=== PATIENT | female | born 1965 | race Caucasian/White ===

== ENCOUNTER 2016-11-23 17:04 | Emergency (ER) | payer OTHER ==
[2016-11-23 18:00] VITALS: BP 136/83
[2016-11-23] MEDS ORDERED: Naproxen TAB* 250 MG PO ONE (19:23)
[2016-11-23] MEDS ORDERED: Acetaminop/Codeine 30 MG TAB* 1 TAB (300 MG/30 MG) PO ONE (19:24)
--- NOTE | 2016-11-23 19:55 | RAD ---
HISTORY: Fall on to right hip, pain COMPARISONS: None VIEWS: 4, Frontal view of the pelvis with frontal and frog-leg views of the right hip FINDINGS: BONE DENSITY: Normal. BONES: There is no displaced fracture. 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 SOFT TISSUES: Unremarkable. OTHER FINDINGS: Degenerative changes are noted of the spine IMPRESSION: NO RADIOGRAPHIC EVIDENCE FOR HIP FRACTURE. X-RAYS MAY BE NEGATIVE WITH NONDISPLACED HIP FRACTURE, IF THERE IS PERSISTENT CLINICAL CONCERN, RECOMMEND CONSIDERATION OF MRI. IN THE SETTING OF CONTRAINDICATION TO MRI OR LIMITATION IN EMERGENT ACCESS TO MRI, CT WOULD BE SUGGESTED.
--- NOTE | 2016-12-03 15:20 | UC ---
Ravi Carreno SooYoung, scribed for Ellie Zayas MD on 11/23/16 at 1921 . Lower Extremity/Ankle HPI - HPI Summary HPI Summary: A 51 y/o F presents to [facility] after slipping and falling onto R-side onset 0700 this AM. Pt was leaving [facility] and fell outside the back door. Associated: ecchymosis and pain along thigh and buttocks. Denies knee pain, abd pain. She notes having steroid injections at L2-L5 in March/April 2016. No PCP as she's currently moving from [place] to [place]. Pt is not on blood thinners. - History of Current Complaint Chief Complaint: UCLowerExtremity Stated Complaint: FELL-BACK AND HIP INJURY Time Seen by Provider: 11/23/16 19:06 Hx Obtained From: Patient Onset/Duration: Sudden Onset, Lasting Hours, Still Present Severity Currently: Moderate Pain Intensity: 6 Pain Scale Used: 0-10 Numeric - Allergies/Home Medications Allergies/Adverse Reactions: Allergies Allergy/AdvReac Type Severity Reaction Status Date / Time No Known Allergies Allergy Verified 11/23/16 18:00 Home Medications: Home Medications BuPROPion XL* [Bupropion XL*] 300 mg PO DAILY 11/23/16 [History Confirmed ] FLUoxetine CAP* [PROzac CAP*] 40 mg PO DAILY 11/23/16 [History Confirmed ] Levothyroxine TAB* [Synthroid TAB*] 150 mcg PO DAILY 11/23/16 [History Confirmed 11/23/16] Omeprazole CAP* [Prilosec CAP* 20 MG] 20 mg PO DAILY 11/23/16 [History Confirmed 11/23/16] PMH/Surg Hx/FS Hx/Imm Hx Previously Healthy: No Endocrine History Of: Reports: Thyroid Disease - HYPOTHYROID - Surgical History Surgical History: Yes Surgery Procedure, Year, and Place: SPLENECTOMY, CHOLECYSTECTOMY - Family History Known Family History: Positive: Cardiac Disease - father - afib, Diabetes - father - Social History Occupation: Employed Full-time Lives: Alone Alcohol Use: Occasionally Substance Use Type: None Smoking Status (MU): Never Smoked Tobacco Review of Systems Gastrointestinal: Negative Motor: Other - pos: pain at R thigh and buttocks Musculoskeletal: Other: - pos: ecchymoses on R thigh All Other Systems Reviewed And Are Negative: Yes Physical Exam Triage Information Reviewed: Yes Appearance: Well-Nourished, Pain Distress - with examination Vital Signs: Initial Vital Signs Temp 97.1 F 11/23/16 17:55 Pulse 83 11/23/16 17:55 Resp 18 11/23/16 17:55 BP 136/83 11/23/16 17:55 Pulse Ox 100 11/23/16 17:55 Vital Signs Reviewed: Yes Eye Exam: Normal ENT Exam: Normal Neck exam: Normal Neck: Positive: Supple, Nontender Respiratory Exam: Normal Respiratory: Positive: Chest non-tender, Lungs clear, Normal breath sounds, No respiratory distress, No accessory muscle use Cardiovascular Exam: Normal Cardiovascular: Positive: RRR, No Murmur, Pulses Normal, Brisk Capillary Refill Abdominal Exam: Normal Abdomen Description: Positive: Nontender Musculoskeletal Exam: Other - Tender R lat hip. Able to walk but painful. R lat thigh + irreg eccymosis approx 8cm diam. Distal R leg ok. Distal nvi. Neurological Exam: Normal Psychological Exam: Normal Skin Exam: Normal - Additional Comments Appearance: Well-Nourished Eye Exam: Normal ENT Exam: Normal Neck exam: Normal, no adenopathy appreciated Respiratory Exam: Normal, no dyspnea, no tachypnea, normal respiratory rate Cardiovascular Exam: Normal Cardiovascular: Heart rate regular, good general skin color, good capillary refill Abdominal Exam: Normal Abdomen Description: Nontender, No organomegaly, Soft Bowel Sounds: Present Musculoskeletal Exam: R LATERAL AND POSTERIOR HIP TENDERNESS Neurological Exam: Normal: nonfocal, grossly intact Psychological Exam: Normal: conversing easily and appropriately Skin Exam: NONBLANCHING ECCHYMOSIS AT R LATERAL THIGH, IRREGULAR SHAPE, MAX DIMENSIONS: L 9cm x W 9cm and L 4cm x W 6cm Diagnostics - Radiology H/P XR Xray Interpretation: No Acute Changes - IMPRESSION: No radiographic evidence for hip fracture. XR may be negative with nondisplaced hip fx, if there is persistent clinical concern, recommend consideration of MRI. In the setting on contraindication to MRI or limitation in emergent access to MRI, CT would be suggested. Radiology Interpretation Completed By: Radiologist Lower Extremity Course/Dx - Course Course Of Treatment: Imaging noted in [facility]. No fx. ++ contusion w/ hematoma. Possible associated sprain. Ms. Sterling is concerned 2/2 is moving this weekend and due to start new job on Saturday. Encouraged to rest and avoid weight bearing as much as possible, although may be difficult. Elevate important. Questions answered to the best of my ability. - Differential Dx/Diagnosis Provider Diagnoses: R hip and thigh contusion Discharge - Discharge Plan Condition: Stable Disposition: HOME Prescriptions: Naproxen TAB* [Naprosyn TAB*] 500 mg PO Q12HR PRN #30 tab PRN Reason: Pain Forms: *Work Release Referrals: No Primary Care Phys,NOPCP [Primary Care Provider] - [facility] PHYSICIAN REFERRAL [Outside] Additional Instructions: As we discussed: Use ice. Take the Naproxen 2x a day. Please follow up with your primary care provider. Seek medical attention for worsening problems in the meantime. The documentation as recorded by the Ravi mitchell SooYoung accurately reflects the service I personally performed and the decisions made by me, Ellie Zayas MD.
== END 2016-11-23 20:52 | disposition home or self-care (01) ==
LOC: UCEAST 17:04
DX: S70.01XA Contusion of right hip, initial encounter (principal); S70.11XA Contusion of right thigh, initial encounter; W01.0XXA Fall on same level from slipping, tripping and stumbling without subsequent striking against object, initial encounter; Y93.9 Activity, unspecified; Y92.59 Other trade areas as the place of occurrence of the external cause; E03.9 Hypothyroidism, unspecified; Z90.49 Acquired absence of other specified parts of digestive tract
CPT/HCPCS: 99202; A9270-GY; G0463

== ENCOUNTER 2017-02-28 17:19 | Emergency (ER) | payer BC ==
[2017-02-28] MEDS ORDERED: Ondansetron INJ* 2 MG/ML VIAL IV ONE (19:58)
[2017-02-28] MEDS ORDERED: NS 0.9% 1000 ML* 2,000 ML IV ONE (19:58)
[2017-02-28] MEDS ORDERED: HYDROmorphone* 1 MG/ML 1 ML SYR IV ONE ×2 (19:58→21:26)
[2017-02-28] MEDS ORDERED: NS 0.9% 1000 ML* 1,000 ML IV ONE (20:28)
[2017-02-28 20:46] LABS: Hematocrit 33 % (35-47); Hemoglobin 10.3 g/dl (12.0-16.0); Mean Corpuscular HGB Conc 32 g/dl (31-36); Mean Corpuscular Hemoglobin 25 pg (27-31); Mean Corpuscular Volume 79 fL (80-97); Mean Platelet Volume 7 um3 (7.4-10.4); Red Blood Count 4.13 10^6/ul (4.0-5.4); White Blood Count 9.3 10^3/ul (3.5-10.8)
[2017-02-28 20:47] LABS: Comments Flag Yes; Red Cell Distribution Width 23 % (10.5-15)
[2017-02-28 20:50] LABS: Urine Bacteria Absent (Absent); Urine Bilirubin Negative (Negative); Urine Glucose Negative (Negative); Urine Nitrite Negative (Negative)
[2017-02-28 21:00] LABS: ALT 12 U/L (7-52); AST 17 U/L (13-39); Albumin 3.8 g/dL (3.2-5.2); Alkaline Phosphatase 93 U/L (34-104); Anion Gap 8 mmol/L (2-11); BUN/Creatinine Ratio 17.6 (8-20); Blood Urea Nitrogen 18 mg/dL (6-24); CO2 Carbon Dioxide 24 mmol/L (22-32); Calcium 8.8 mg/dL (8.6-10.3); Chloride 107 mmol/L (101-111); EGFR African American 73.8 (>60); EGFR Non-African American 57.4 (>60); Globulin 2.9 g/dL (2-4); Glucose 81 mg/dL (70-100); Lipase < 10 U/L (11.0-82.0); Magnesium 1.9 mg/dL (1.9-2.7); Potassium 3.2 mmol/L (3.5-5.0); Sodium 139 mmol/L (133-145); Total Protein 6.7 g/dL (6.4-8.9)
--- NOTE | 2017-03-01 00:52 | ED ---
Diego Carreno Rebecca, scribed for Jenny Alexis MD on 02/28/17 at 2120 . Complex/Multi-Sys Presentation - HPI Summary HPI Summary: Pt is a 52 y/o F who was referred to ED by her PCP (Dr. Morenita Bowen) for anemia , hypotension and diarrhea, per pt. Reports diarrhea began suddenly 13 days ago and has been constant since onset. Sx aggravated and alleviated by nothing, unchanged by [place]. Reports that her PCP was concerned about adrenal insufficiency today due to an episode on January 28 when she p/w hypotension and irwin appearance and revealed renal insufficiency. 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 Pt believes LOC was due to sudden weight loss caused by gastric bypass surgery. PMHx anemia, hypotension. - History Of Current Complaint Chief Complaint: EDNauseaVomitDiarrh Time Seen by Provider: 02/28/17 20:03 Hx Obtained From: Patient Onset/Duration: Sudden Onset, Still Present Timing: Constant Aggravating Factor(s): Nothing Alleviating Factor(s): Nothing Associated Signs And Symptoms: Positive: Diarrhea, Other - Low Hgb, hypotension - Allergies/Home Medications Allergies/Adverse Reactions: Allergies Allergy/AdvReac Type Severity Reaction Status Date / Time Aripiprazole [From Abilify] Allergy Dizziness Verified 02/28/17 20:00 PMH/Surg Hx/FS Hx/Imm Hx Endocrine/Hematology History: Reports: Hx Thyroid Disease - HYPOTHYROID, Hx Anemia Denies: Hx Diabetes Cardiovascular History: Reports: Hx Hypotension Denies: Hx Hypertension Respiratory History: Reports: Hx Pneumonia GI History: Reports: Hx Gastroesophageal Reflux Disease, Other GI Disorders - Gastric Bypass Sensory History: Reports: Hx Contacts or Glasses Denies: Hx Hearing Aid Opthamlomology History: Reports: Hx Contacts or Glasses Psychiatric History: Reports: Hx Depression - Cancer History Cancer Type, Location and Year: [facility] - Surgical History Surgery Procedure, Year, and Place: SPLENECTOMY, CHOLECYSTECTOMY, GASTRIC BYPASS , HYSTERECTOMY Infectious Disease History: No Infectious Disease History: Denies: Traveled Outside the [place] in Last 30 Days - Family History Known Family History: Positive: Cardiac Disease - father - afib, Diabetes - father - Social History Alcohol Use: Rare Substance Use Type: Reports: None Smoking Status (MU): Never Smoked Tobacco Review of Systems Positive: Other - Low Hgb, hypotension Positive: Diarrhea - 13 days All Other Systems Reviewed And Are Negative: Yes Physical Exam - Summary Physical Exam Summary: General: Well appearing, no pain distress Skin: Warm, Skin Color Reflects Adequate Perfusion, Dry Eyes: EOMI, JANI ENT: Pharynx normal, TMs normal Neck: Supple, nontender Respiratory: CTA, breath sounds present, no rhonchi, no wheezes, no rales Cardiovascular: RRR, no murmur, no rub, no gallop Abdomen: Soft, nontender, Non-distended, no guarding, no rebound Bowel: Present Musculoskeletal: MEENAKSHI, No edema Neuro: Sensory/motor intact, A&Ox3, CN intact 2-12 Psych: Affect/mood appropriate Triage Information Reviewed: Yes Vital Signs On Initial Exam: Initial Vitals Temp Pulse Resp BP Pulse Ox 97.4 F 86 18 118/76 100 02/28/17 17:20 02/28/17 17:20 02/28/17 17:20 02/28/17 17:20 02/28/17 17:20 Vital Signs Reviewed: Yes Diagnostics - Vital Signs Vital Signs Temp Pulse Resp BP Pulse Ox 02/28/17 19:53 98 F 67 18 108/61 98 02/28/17 18:47 97.0 F 74 16 135/78 100 02/28/17 17:20 97.4 F 86 18 118/76 100 - Laboratory Lab Results: Lab Results 02/28/17 02/28/17 02/28/17 Range/Units 20:30 20:30 20:30 WBC 9.3 (3.5-10.8) 10^3/ul RBC 4.13 (4.0-5.4) 10^6/ul Hgb 10.3 L (12.0-16.0) g/dl Hct 33 L (35-47) % MCV 79 L (80-97) fL MCH 25 L (27-31) pg MCHC 32 (31-36) g/dl RDW 23 H (10.5-15) % Plt Count 402 (150-450) 10^3/ul MPV 7 L (7.4-10.4) um3 Neut % (Auto) 38.3 (38-83) % Lymph % (Auto) 50.9 H (25-47) % Luce % (Auto) 6.4 (1-9) % Eos % (Auto) 3.7 (0-6) % Baso % (Auto) 0.7 (0-2) % Absolute Neuts (auto) 3.6 (1.5-7.7) 10^3/ul Absolute Lymphs (auto) 4.7 (1.0-4.8) 10^3/ul Absolute Monos (auto) 0.6 (0-0.8) 10^3/ul Absolute Eos (auto) 0.3 (0-0.6) 10^3/ul Absolute Basos (auto) 0.1 (0-0.2) 10^3/ul Absolute Nucleated RBC 0 10^3/ul Nucleated RBC % 0 Sodium 139 (133-145) mmol/L Potassium 3.2 L (3.5-5.0) mmol/L Chloride 107 (101-111) mmol/L Carbon Dioxide 24 (22-32) mmol/L Anion Gap 8 (2-11) mmol/L BUN 18 (6-24) mg/dL Creatinine 1.02 H (0.51-0.95) mg/dL Est GFR ( Amer) 73.8 (>60) Est GFR (Non-Af Amer) 57.4 (>60) BUN/Creatinine Ratio 17.6 (8-20) Glucose 81 (70-100) mg/dL Lactic Acid (0.5-2.0) mmol/L Calcium 8.8 (8.6-10.3) mg/dL Magnesium 1.9 (1.9-2.7) mg/dL Total Bilirubin 0.30 (0.2-1.0) mg/dL AST 17 (13-39) U/L ALT 12 (7-52) U/L Alkaline Phosphatase 93 (34-104) U/L C-Reactive Protein 1.80 (< 5.00) mg/L Total Protein 6.7 (6.4-8.9) g/dL Albumin 3.8 (3.2-5.2) g/dL Globulin 2.9 (2-4) g/dL Albumin/Globulin Ratio 1.3 (1-3) Lipase < 10 L (11.0-82.0) U/L Urine Color Yellow Urine Appearance Clear Urine pH 5.0 (5-9) Ur Specific [place] 1.018 (1.010-1.030) Urine Protein Negative (Negative) Urine Ketones Negative (Negative) Urine Blood Negative (Negative) Urine Nitrate Negative (Negative) Urine Bilirubin Negative (Negative) Urine Urobilinogen Negative (Negative) Ur Leukocyte Esterase 1+ H (Negative) Urine WBC (Auto) 2+(11-20/hpf) H (Absent) Urine RBC (Auto) Trace(0-2/hpf) (Absent) Ur Squamous Epith Cells Present H (Absent) Urine Bacteria Absent (Absent) Urine Glucose Negative (Negative) 02/28/17 Range/Units 20:30 WBC (3.5-10.8) 10^3/ul RBC (4.0-5.4) 10^6/ul Hgb (12.0-16.0) g/dl Hct (35-47) % MCV (80-97) fL MCH (27-31) pg MCHC (31-36) g/dl RDW (10.5-15) % Plt Count (150-450) 10^3/ul MPV (7.4-10.4) um3 Neut % (Auto) (38-83) % Lymph % (Auto) (25-47) % Luce % (Auto) (1-9) % Eos % (Auto) (0-6) % Baso % (Auto) (0-2) % Absolute Neuts (auto) (1.5-7.7) 10^3/ul Absolute Lymphs (auto) (1.0-4.8) 10^3/ul Absolute Monos (auto) (0-0.8) 10^3/ul Absolute Eos (auto) (0-0.6) 10^3/ul Absolute Basos (auto) (0-0.2) 10^3/ul Absolute Nucleated RBC 10^3/ul Nucleated RBC % Sodium (133-145) mmol/L Potassium (3.5-5.0) mmol/L Chloride (101-111) mmol/L Carbon Dioxide (22-32) mmol/L Anion Gap (2-11) mmol/L BUN (6-24) mg/dL Creatinine (0.51-0.95) mg/dL Est GFR ( Amer) (>60) Est GFR (Non-Af Amer) (>60) BUN/Creatinine Ratio (8-20) Glucose (70-100) mg/dL Lactic Acid 0.7 (0.5-2.0) mmol/L Calcium (8.6-10.3) mg/dL Magnesium (1.9-2.7) mg/dL Total Bilirubin (0.2-1.0) mg/dL AST (13-39) U/L ALT (7-52) U/L Alkaline Phosphatase (34-104) U/L C-Reactive Protein (< 5.00) mg/L Total Protein (6.4-8.9) g/dL Albumin (3.2-5.2) g/dL Globulin (2-4) g/dL Albumin/Globulin Ratio (1-3) Lipase (11.0-82.0) U/L Urine Color Urine Appearance Urine pH (5-9) Ur Specific [place] (1.010-1.030) Urine Protein (Negative) Urine Ketones (Negative) Urine Blood (Negative) Urine Nitrate (Negative) Urine Bilirubin (Negative) Urine Urobilinogen (Negative) Ur Leukocyte Esterase (Negative) Urine WBC (Auto) (Absent) Urine RBC (Auto) (Absent) Ur Squamous Epith Cells (Absent) Urine Bacteria (Absent) Urine Glucose (Negative) Result Diagrams: 02/28/17 20:30 02/28/17 20:30 Lab Statement: Any lab studies that have been ordered have been reviewed, and results considered in the medical decision making process. Re-Evaluation - Re-Evaluation First Eval Re-Evaluation Time: 00:30 Change: Improved Comment: Pt is feeling alright. Discussed results and findings with the pt and epxlained that she will be getting D/C. Must wait for pain medication to wear off, since she drove to the ED. Complex Multi-Symp Course/Dx Course Of Treatment: case discussed with pt's providers (Law Arnold and Aram ) Pt's vitals were good here no documented very low bp's, anemia is not severe with hg of 10 which is her baseline, her urine shows wbc's but no bacteria and many epithelial cells (will not treat and wait for cultures as discussed with ). Of note her ua does not show ketones, her pmd's will do close followup. Pt did require pain meds for her cramping that comes with the diarrhea - Diagnoses Provider Diagnoses: Diarrhea Discharge - Discharge Plan Condition: Stable Disposition: HOME Prescriptions: HYDROcodone/ACETAMIN 5-325 MG* [[place] 5-325 TAB*] 1 tab PO Q8H PRN #10 tab MDD 3 PRN Reason: Pain Patient Education Materials: Acute Diarrhea (ED) Referrals: Liz Bowen MD [Primary Care Provider] - 2 Days Additional Instructions: Return to the ED for any new or worsening symptoms. The documentation as recorded by the Diego mitchell Rebecca accurately reflects the service I personally performed and the decisions made by , Jenny Alexis MD.
[2017-03-01 02:05] VITALS: BP 101/57
[2017-03-01] MEDS ORDERED: HYDROcodone/ACETAMIN 5-325 MG* 1 TAB PO ONE (02:15)
== END 2017-03-01 02:10 | disposition home or self-care (01) ==
LOC: ED 17:19
DX: R19.7 Diarrhea, unspecified (principal); I95.9 Hypotension, unspecified
CPT/HCPCS: 36415; 80053; 81003; 81015; 83605; 83690; 83735; 85025; 86140; 87086; 96374; 96375; 99283; J1170; J2405

== ENCOUNTER 2017-06-05 16:00 | Emergency (ER) | payer BC ==
--- NOTE | 2017-06-05 18:00 | UC ---
Back Pain HPI - HPI Summary HPI Summary: slipped last night and caught her self but is having left sided back pain no radiating no spinal pain - History of Current Complaint Chief Complaint: UCBackPain Stated Complaint: BACK INJURY Time Seen by Provider: 06/05/17 17:49 Hx Obtained From: Patient ?: No Onset/Duration: Sudden Onset, Lasting Days - 1, Still Present Timing: Constant Severity Initially: Moderate Severity Currently: Moderate Pain Intensity: 6 Pain Scale Used: 0-10 Numeric Back Pain: Is Discrete @ - left side of lower back Character: Aching, Stiffness Aggravating: Movement Alleviating: Rest, Position - Allergies/Home Medications Allergies/Adverse Reactions: Allergies Allergy/AdvReac Type Severity Reaction Status Date / Time Aripiprazole [From 24/7 Card] Allergy Dizziness Verified 06/05/17 16:25 PMH/Surg Hx/FS Hx/Imm Hx Previously Healthy: Yes Endocrine History: Hypothyroidism Cardiovascular History: Hypertension GI/ History: Gastroesophageal Reflux Psychological History: Depression - Surgical History Surgical History: Yes Surgery Procedure, Year, and Place: SPLENECTOMY, CHOLECYSTECTOMY, GASTRIC BYPASS , HYSTERECTOMY,lymphnode neck yrs ago - Family History Known Family History: Positive: Cardiac Disease - father - afib, Diabetes - father - Social History Occupation: Employed Full-time Lives: With Family Alcohol Use: Occasionally Substance Use Type: None Smoking Status (MU): Never Smoked Tobacco Review of Systems Constitutional: Negative Skin: Negative Eyes: Negative ENT: Negative Respiratory: Negative Cardiovascular: Negative Gastrointestinal: Negative Genitourinary: Negative Motor: Negative Neurovascular: Negative Musculoskeletal: Myalgia - left side of lower back muscular pain Neurological: Negative Psychological: Negative All Other Systems Reviewed And Are Negative: Yes Physical Exam Triage Information Reviewed: Yes Appearance: Well-Appearing, No Pain Distress, Well-Nourished Vital Signs: Initial Vital Signs Temp 96.9 F 06/05/17 16:21 Pulse 78 06/05/17 16:21 Resp 18 06/05/17 16:21 BP 127/89 06/05/17 16:21 Pulse Ox 100 06/05/17 16:21 Vital Signs Reviewed: Yes Eye Exam: Normal Eyes: Positive: Conjunctiva Clear ENT Exam: Normal ENT: Positive: Normal ENT inspection, Hearing grossly normal. Negative: Nasal congestion, Nasal drainage, Trismus, Muffled/hoarse voice Dental Exam: Normal Neck exam: Normal Neck: Positive: Supple, Nontender, No Lymphadenopathy Respiratory Exam: Normal Respiratory: Positive: Chest non-tender, Lungs clear, Normal breath sounds, No respiratory distress, No accessory muscle use Cardiovascular Exam: Normal Cardiovascular: Positive: RRR, No Murmur, Pulses Normal, Brisk Capillary Refill Musculoskeletal Exam: Normal Musculoskeletal: Positive: Strength Intact, No Edema, ROM Limited @ - lumbar movement limited Neurological Exam: Normal Neurological: Positive: Alert, Muscle Tone Normal Psychological Exam: Normal Skin Exam: Normal Back Pain Course/Dx - Course Course Of Treatment: Nsaid, muscle relaxer, heat/ice for comfort gentil exercise and stretching follow with pcp prn - Differential Dx/Diagnosis Differential Diagnosis/HQI/PQRI: Arthritis, Strain, Sprain Provider Diagnoses: lumbar strain Discharge - Discharge Plan Condition: Stable Disposition: HOME Prescriptions: Cyclobenzaprine TAB* [Flexeril 10 MG TAB*] 10 mg PO TID PRN #15 tab PRN Reason: muscle spasm Patient Education Materials: Low Back Strain (ED), Muscle Spasm (ED), Core Strengthening Exercises (GEN), Lower Back Exercises (ED) Referrals: Liz Bowen MD [Primary Care Provider] - If Needed
[2017-06-05] MEDS ORDERED: Ketorolac INJ* 60 MG/2 ML VIAL IM ONE (18:02)
[2017-06-05 18:22] VITALS: BP 126/84
== END 2017-06-05 18:33 | disposition home or self-care (01) ==
LOC: UCEAST 16:00
DX: S39.012A Strain of muscle, fascia and tendon of lower back, initial encounter (principal); W18.40XA Slipping, tripping and stumbling without falling, unspecified, initial encounter; Y93.9 Activity, unspecified; Y92.9 Unspecified place or not applicable; E03.9 Hypothyroidism, unspecified; I10 Essential (primary) hypertension; K21.9 Gastro-esophageal reflux disease without esophagitis; F32.9 Major depressive disorder, single episode, unspecified; Z90.49 Acquired absence of other specified parts of digestive tract; Z98.84 Bariatric surgery status; Z90.710 Acquired absence of both cervix and uterus; Z88.8 Allergy status to other drugs, medicaments and biological substances
CPT/HCPCS: 96372; 99212; G0463; J1885

== ENCOUNTER 2019-07-04 14:46 | Emergency (ER) | payer BC ==
[2019-07-04] MEDS ORDERED: Ondansetron INJ* 2 MG/ML VIAL IV ONE (15:59)
[2019-07-04 16:11] LABS: Urine Appearance Clear; Urine Bacteria Absent (Absent); Urine Bilirubin Negative (Negative); Urine Blood Negative (Negative); Urine Color Yellow; Urine Glucose Negative (Negative); Urine Ketones Negative (Negative); Urine Nitrite Negative (Negative); Urine Protein Negative (Negative); Urine Red Blood Cell 1+(3-5/hpf) (Absent); Urine Specific Gravity 1.019 (1.010-1.030); Urine Squamous Epithelial Cell Present (Absent); Urine Urobilinogen Negative (Negative); Urine White Blood Cell Trace(0-5/hpf) (Absent)
[2019-07-04 16:32] LABS: ABS Basophils 0.1 10^3/ul (0-0.2); ABS Eosinophils 0.4 10^3/ul (0-0.6); ABS Lymphocytes 3.9 10^3/ul (1.0-4.8); ABS Monocytes 0.7 10^3/ul (0-0.8); ABS Neutrophils 4.7 10^3/ul (1.5-7.7); Eosinophil % 4.4 %; Hematocrit 39 % (35-47); Hemoglobin 13.1 g/dL (12.0-16.0); Lymphocyte % 39.6 %; Mean Corpuscular HGB Conc 34 g/dL (31-36); Mean Corpuscular Hemoglobin 31 pg (27-31); Mean Corpuscular Volume 93 fL (80-97); Mean Platelet Volume 6.5 fL (7.4-10.4); Nucleated Red Blood Cells % 0.1; Platelet Count 445 10^3/uL (150-450); Red Blood Count 4.16 10^6 /uL (3.70-4.87); Red Cell Distribution Width 14 % (10-15); White Blood Count 9.7 10^3/uL (3.5-10.8)
[2019-07-04] MEDS ORDERED: Morphine 4 MG/ML VIAL (1 ml) 4 MG/ML VIAL IV ONE (16:36)
[2019-07-04] MEDS ORDERED: NS 0.9% 1000 ML** 1,000 ML IV ONE (16:36)
--- NOTE | 2019-07-04 16:37 | ED ---
Abdominal Pain/Female - HPI Summary HPI Summary: Patient is a 54-year-old female who presents emergency department for upper abdominal pain that started yesterday. Patient has a surgical history of gastric bypass, cholecystectomy, hysterectomy. Notes remote history of bowel obstruction as well. Patient states she ate half of a doughnut yesterday morning and then started feeling sick. Patient states abdominal pain is becoming more severe and she has had a few episodes of vomiting. Denies fever, chest pain, shortness of breath, urinary symptoms, diarrhea. Symptoms are moderate in severity. No current modifying factors. - History of Current Complaint Chief Complaint: EDAbdPain Stated Complaint: ABD PAIN Time Seen by Provider: 07/04/19 15:39 Hx Obtained From: Patient Pain Intensity: 8 Allergies/Adverse Reactions: Allergies Allergy/AdvReac Type Severity Reaction Status Date / Time aripiprazole [[facility]] AdvReac Dizziness Verified 07/04/19 14:52 PMH/Surg Hx/FS Hx/Imm Hx Previously Healthy: Yes Endocrine/Hematology History: Reports: Hx Thyroid Disease, Hx Anemia Denies: Hx Diabetes Cardiovascular History: Reports: Hx Hypotension Denies: Hx Hypertension, Hx Pacemaker/ICD Respiratory History: Reports: Hx Pneumonia Denies: Hx Asthma, Hx Chronic Obstructive Pulmonary Disease (COPD) GI History: Reports: Hx Gastroesophageal Reflux Disease, Other GI Disorders - Gastric Bypass Denies: Hx Ulcer History: Reports: Hx Renal Disease - 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 Denies: Hx Dialysis Musculoskeletal History: Reports: Hx Back Problems - Pain Clinic patient Sensory History: Reports: Hx Contacts or Glasses Denies: Hx Hearing Aid Opthamlomology History: Reports: Hx Contacts or Glasses Neurological History: Reports: Other Neuro Impairments/Disorders - pain clinic patient, bulging disc lower back Psychiatric History: Reports: Hx Depression, Hx Panic Disorder - Cancer History Cancer Type, Location and Year: [facility] Hx Chemotherapy: No Hx Radiation Therapy: Yes - Surgical History Surgery Procedure, Year, and Place: SPLENECTOMY, CHOLECYSTECTOMY, GASTRIC BYPASS , HYSTERECTOMY,lymphnode DISECTION neck yrs ago. LT CARPAL TUNNEL Infectious Disease History: No Infectious Disease History: Reports: Hx Hepatitis - hepatitis c Denies: Hx Clostridium Difficile, Hx Human Immunodeficiency Virus (HIV), Hx of Known/Suspected MRSA, Hx Shingles, Hx Tuberculosis, Hx Known/Suspected VRE, Hx Known/Suspected VRSA, History Other Infectious Disease, Traveled Outside the [place] in Last 30 Days - Family History Known Family History: Positive: Cardiac Disease - father - afib, Diabetes - father, Non-Contributory - Social History Occupation: Employed Full-time Lives: With Family Alcohol Use: Occasionally Hx Substance Use: No Substance Use Type: Reports: None Hx Tobacco Use: No Smoking Status (MU): Never Smoked Tobacco Review of Systems Positive: Chills Cardiovascular: Negative Respiratory: Negative Positive: Abdominal Pain, Vomiting, Nausea. Negative: Diarrhea Genitourinary: Negative Negative: dysuria, flank pain Neurological: Negative All Other Systems Reviewed And Are Negative: Yes Physical Exam Triage Information Reviewed: Yes Vital Signs On Initial Exam: Initial Vitals Temp Pulse Resp BP Pulse Ox 98.1 F 106 18 128/91 97 07/04/19 14:47 07/04/19 14:47 07/04/19 14:47 07/04/19 14:47 07/04/19 14:47 Vital Signs Reviewed: Yes Appearance: Positive: Pain Distress - Pt. sitting up in bed with knees pulled to chest. Appears in pain but nontoxic. Skin: Positive: Warm, Dry Head/Face: Positive: Normal Head/Face Inspection Eyes: Positive: Normal, EOMI Neck: Positive: Supple Respiratory/Lung Sounds: Positive: Clear to Auscultation, Breath Sounds Present Cardiovascular: Positive: Normal, RRR Abdomen Description: Positive: Other: - Obese. Abd. is soft with diffuse tenderness. Musculoskeletal: Positive: Normal, Strength/ROM Intact Neurological: Positive: Normal, CN Intact II-III Psychiatric: Positive: Affect/Mood Appropriate Diagnostics - Vital Signs Vital Signs Temp Pulse Resp BP Pulse Ox 07/04/19 15:45 106 98 07/04/19 15:44 97 156/104 98 07/04/19 14:47 98.1 F 106 18 128/91 97 - Laboratory Lab Results: Lab Results 07/04/19 07/04/19 Range/Units 16:00 16:20 WBC 9.7 (3.5-10.8) 10^3/uL RBC 4.16 (3.70-4.87) 10^6 /uL Hgb 13.1 (12.0-16.0) g/dL Hct 39 (35-47) % MCV 93 (80-97) fL MCH 31 (27-31) pg MCHC 34 (31-36) g/dL RDW 14 (10-15) % Plt Count 445 (150-450) 10^3/uL MPV 6.5 L (7.4-10.4) fL Neut % (Auto) 48.3 % Lymph % (Auto) 39.6 % Billings % (Auto) 7.0 % Eos % (Auto) 4.4 % Baso % (Auto) 0.7 % Absolute Neuts (auto) 4.7 (1.5-7.7) 10^3/ul Absolute Lymphs (auto) 3.9 (1.0-4.8) 10^3/ul Absolute Monos (auto) 0.7 (0-0.8) 10^3/ul Absolute Eos (auto) 0.4 (0-0.6) 10^3/ul Absolute Basos (auto) 0.1 (0-0.2) 10^3/ul Absolute Nucleated RBC 0.0 10^3/ul Nucleated RBC % 0.1 Urine Color Yellow Urine Appearance Clear Urine pH 5.0 (5-9) Ur Specific Brooten 1.019 (1.010-1.030) Urine Protein Negative (Negative) Urine Ketones Negative (Negative) Urine Blood Negative (Negative) Urine Nitrate Negative (Negative) Urine Bilirubin Negative (Negative) Urine Urobilinogen Negative (Negative) Ur Leukocyte Esterase Trace A (Negative) Urine WBC (Auto) Trace(0-5/hpf) (Absent) Urine RBC (Auto) 1+(3-5/hpf) A (Absent) Ur Squamous Epith Cells Present A (Absent) Urine Bacteria Absent (Absent) Urine Glucose Negative (Negative) Result Diagrams: 07/04/19 16:20 07/04/19 16:20 Lab Statement: Any lab studies that have been ordered have been reviewed, and results considered in the medical decision making process. Abdominal Pain Fem Course/Dx - Course Course Of Treatment: Patient presenting with diffuse abdominal pain with vomiting. She is afebrile with stable vital signs. Given surgical history Will obtain CT scan for further evaluation. Patient given IV fluids, morphine and Zofran. Patient will be signed out to ANEUDY Singleton for CT results and dispo. - Diagnoses Differential Diagnosis: Positive: Appendicitis, Bowel Obstruction, Constipation , Pancreatitis Provider Diagnoses: Abdominal pain Discharge ED - Sign-Out/Discharge Documenting (check all that apply): Sign-Out Patient Signing out patient TO: Luis Eduardo Arzate Patient Received Moderate/Deep Sedation with Procedure: No - Discharge Plan Referrals: Liz Bowen MD [Primary Care Provider] -
[2019-07-04 16:50] LABS: ALT 33 U/L (7-52); AST 30 U/L (13-39); Albumin 4.4 g/dL (3.2-5.2); Albumin/Globulin Ratio 1.4 (1-3); Alkaline Phosphatase 160 U/L (34-104); Anion Gap 6 mmol/L (2-11); BUN/Creatinine Ratio 17.6 (8-20); Blood Urea Nitrogen 18 mg/dL (6-24); CO2 Carbon Dioxide 28 mmol/L (22-32); Calcium 9.7 mg/dL (8.6-10.3); Chloride 104 mmol/L (101-111); EGFR African American 68.9 (>60); EGFR Non-African American 56.9 (>60); Globulin 3.1 g/dL (2-4); Glucose 89 mg/dL (70-100); Potassium 4.1 mmol/L (3.5-5.0); Sodium 138 mmol/L (135-145); Total Protein 7.5 g/dL (6.4-8.9)
[2019-07-04] MEDS ORDERED: Iodixanol* (CONTRAST) 320 MG/ML 100 ML SDV IV ONE (17:14)
[2019-07-04] MEDS ORDERED: diPHENhydraMINE PO* 50 MG PO ONE (17:36)
--- NOTE | 2019-07-04 18:51 | ED ---
Progress - Progress Note Progress Note: patient signed out by Marquez TURNER pending CT CT shows IMPRESSION: 1. No CT findings to correlate with patient's symptomatology. 2. Expected appearance of patient's Vaibhav-en-Y gastric bypass. 3. Splenic focus most likely a post right cyst, lymphangioma, or hamartoma. No followup imaging indicated per ACR guidelines. Course/Dx - Course Course Of Treatment: Patient presenting with diffuse abdominal pain with vomiting. She is afebrile with stable vital signs. Given surgical history Will obtain CT scan for further evaluation. Patient given IV fluids, morphine and Zofran. CT shows no acute finding. urine likely contaminant and lab work wnl. discussed results with patient. told if symptoms change to return. told otherwise to follow up with primary. patient understand and agrees with plan. - Diagnoses Provider Diagnoses: Abdominal pain Discharge ED - Sign-Out/Discharge Documenting (check all that apply): Patient Departure, Receiving Sign-Out Receiving patient FROM: Marquez Lopez Patient Received Moderate/Deep Sedation with Procedure: No - Discharge Plan Condition: Good Disposition: HOME Patient Education Materials: Acute Abdominal Pain (ED) Referrals: Liz Bowen MD [Primary Care Provider] - Additional Instructions: follow up with primary within 3 days Take tyenlol or ibuprofen every 6 hours for pain drink fluids as can tolerate Return to ED if develop any new or worsening symptoms - Billing Disposition and Condition Condition: GOOD Disposition: Home
[2019-07-04 19:51] VITALS: BP 143/91
== END 2019-07-04 19:53 | disposition home or self-care (01) ==
LOC: ED 14:46
DX: R10.9 Unspecified abdominal pain (principal); E07.9 Disorder of thyroid, unspecified; D64.9 Anemia, unspecified; K21.9 Gastro-esophageal reflux disease without esophagitis; Z98.84 Bariatric surgery status; Z90.49 Acquired absence of other specified parts of digestive tract; Z90.710 Acquired absence of both cervix and uterus; Z88.8 Allergy status to other drugs, medicaments and biological substances; Z79.899 Other long term (current) drug therapy
CPT/HCPCS: 36415; 74177; 80053; 81003; 81015; 83605; 83690; 85025; 86140; 87086; 96374; 96375; 99284; A9270-GY; J2270; J2405; Q9967

== ENCOUNTER 2019-12-01 14:58 | Emergency (ER) | payer BC ==
--- OUTSIDE RECORDS SUMMARY | 2019-12-01 15:40 | XMS REPORT | Continuity of Care Document ---
:1965 External Reference #:[id number] Author Name Enoch Humphreys MD, FACS (transmitted by agent of provider Jerry Poe) Address [address] [place] [address] Care Team Providers Name Role Phone Liz Bowen MD - Internal Care Team Information Validation Technician Medicine Sasha Oliveros N.P. - Adult Health Care Team Information Validation Technician Problems Active Problems Provider Date Lumbar radiculopathy Asaf Pickens M.D. Onset: 02/18/2017 Low back pain Asaf Pickens M.D. Onset: 06/19/2017 Degeneration of lumbar intervertebral disc Asaf Pickens M.D. Onset: 2016 Social History Type Date Description Comments Sex Unknown ETOH Use Occasionally consumes alcohol Tobacco Use Start: Unknown Patient has never smoked Recreational Drug Use Denies Drug Use Smoking Status Reviewed: 11/19/19 Patient has never smoked Exercise Type/Frequency Does not exercise Allergies, Adverse Reactions, Alerts Active Allergies Reaction Severity Comments Date Abilify hypotension 07/24/2019 Elavil dry mouth 09/30/2019 Inactive Allergies NKDA 02/18/2017 Medications Active Medications SIG Qnty Indications Ordering Provider Date Zolpidem Tartrate take 1 tablet at Liz Bowen 10mg bedtime as MD Ar Tablets needed Bupropion HCL ER (XL) take 1 tablet Unknown 300mg daily Tablets ER 24HR Clonazepam take 1 tablet Liz Bowen 1mg Tablets twice a day MD Ar Omeprazole 1 by mouth every Unknown 40mg Capsules DR emily Bailey For Her once a day Unknown Tablets Fluoxetine HCL 1 by mouth every Unknown 40mg Capsules day Fentanyl apply one patch Unknown 37.5mcg/HR Patches every 3 days for 72HR back pain Hydrocodone-Acetaminophe Take One Tablet Unknown n By Mouth Four 7.5-325mg Tablets Times A Day as Needed Maximum Daily Dose 4 Cyclobenzaprine HCL Take One Tablet Unknown 10mg By Mouth Twice A Tablets Day as Needed Levothyroxine Sodium Take One Tablet Unknown 150mcg By Mouth Every Tablets Day Immunizations Description No Information Available Vital Signs Date Vital Result Comment 11/19/2019 3:16pm Height 67 inches 5'7" Weight 292.00 lb Heart Rate 72 /min BP Systolic Sitting 112 mmHg BP Diastolic Sitting 74 mmHg Respiratory Rate 18 /min Body Temperature 97.7 F BMI (Body Mass Index) 45.7 kg/m2 07/24/2019 3:15pm Height 67 inches 5'7" Weight 280.00 lb Heart Rate 95 /min BP Systolic Sitting 122 mmHg BP Diastolic Sitting 64 mmHg Respiratory Rate 18 /min Pain Level 4 BMI (Body Mass Index) 43.8 kg/m2 Results Description No Information Available Procedures Date Code Description Status 09/16/2019 64300 Nerve Conduction 09-10 Studies Completed 09/16/2019 27444 Needle Electromyography Complete, Five Or More Muscles Completed Studied Medical Devices Description No Information Available Encounters Type Date Location Provider Dx Diagnosis Office Visit 08/06/2019 [facility] M48.02 Spinal stenosis, 1:00p [facility] Rodriguez MD cervical region M47.22 Other spondylosis with radiculopathy, cervical region M51.36 Other intervertebral disc degeneration, lumbar region M43.16 Spondylolisthesis, lumbar region Office Visit 07/24/2019 [facility] M51.36 Other 3:00p [facility] Tran intervertebral disc degeneration, lumbar region M54.16 Radiculopathy, lumbar region M54.5 Low back pain Assessments Date Code Description Provider 11/19/2019 R22.2 Localized swelling, mass and lump, trunk Enoch Humphreys MD, FACS 09/16/2019 G62.9 Polyneuropathy, unspecified Meron Bejarano M.D. 09/16/2019 G56.01 Carpal tunnel syndrome, right upper limb Meron Cowdery, M.D. 08/06/2019 M48.02 Spinal stenosis, cervical region Chaya Rordiguez MD 08/06/2019 M47.22 Other spondylosis with radiculopathy, Chaya Rodriguez MD cervical region 08/06/2019 M51.36 Other intervertebral disc degeneration, Chaya Rodriguez MD lumbar region 08/06/2019 M43.16 Spondylolisthesis, lumbar region Chaya Rodriguez MD 07/24/2019 M51.36 Other intervertebral disc degeneration, Y[facility] Ayala lumbar region 07/24/2019 M54.16 Lumbar radiculopathy YUE Ayala 07/24/2019 M54.5 Low back pain YUE Ayala Plan of Treatment Future Appointment(s):12/09/2019 1:00 pm - Chaya Rodriguez MD [facility]11/19/2019 - Enoch Humphreys MD, FACSR22.2 Localized swelling, mass and lump, trunkNew Labs:Cytology Non-Oracle Bpm Consultant, Ordered: Follow up:after testing is completed Functional Status Description No Information Available Mental Status Description No Information Available Referrals Refer to Dr Reason for Referral Status Appt Date Enoch Humphreys MD Possible lipoma Created [address] [place] [address] [phone]
--- NOTE | 2019-12-01 15:41 | UC ---
FLU HPI - HPI Summary HPI Summary: 54 yo female presents with flu-like symptoms. She tells me that last night she developed fatigue, body aches, and sore throat. She has a hx of lymphoma and notes that over the last 2-3 years anytime she gets "a little cold" she gets septic and is admitted to the hospital. She works at the [employer] at [employer] and many coworkers have been sick with flu like symptoms as well as patients. She did get a flu shot this year. Nothing OTC for her symptoms. She is eating, drinking, and tolerating po well. Denies fever, chills, cough, rash, SOB, chest pain, abdominal pain, n/v, dysuria. - History of Current Complaint Stated Complaint: FLU SYMPTOMS Time Seen by Provider: 12/01/19 15:40 Hx Obtained From: Patient Onset/Duration: Sudden Onset Severity Currently: Mild Severity Initially: Mild Pain Intensity: 3 Pain Scale Used: 0-10 Numeric - Allergy/Home Medications Allergies/Adverse Reactions: Allergies Allergy/AdvReac Type Severity Reaction Status Date / Time aripiprazole [From Abilify] AdvReac Dizziness Verified 12/01/19 16:04 PMH/Surg Hx/FS Hx/Imm Hx - Additional Past Medical History Additional PMH: Lymphoma Hep C Chronic pain Psychological History: Depression - Surgical History Surgical History: Yes Surgery Procedure, Year, and Place: SPLENECTOMY, CHOLECYSTECTOMY, GASTRIC BYPASS , HYSTERECTOMY,lymphnode DISECTION neck yrs ago. LT CARPAL TUNNEL - Family History Known Family History: Positive: Cardiac Disease - father - afib, Diabetes - father, Non-Contributory - Social History Alcohol Use: None Alcohol Amount: 1/2 drink Substance Use Type: None Smoking Status (MU): Never Smoked Tobacco - Immunization History Most Recent Influenza Vaccination: none Most Recent Pneumonia Vaccination: 2017 Review of Systems All Other Systems Reviewed And Are Negative: No Constitutional: Positive: Fatigue, Other - Body aches Skin: Positive: Negative Eyes: Positive: Negative ENT: Positive: Sore Throat Respiratory: Positive: Negative Cardiovascular: Positive: Negative Gastrointestinal: Positive: Negative Genitourinary: Positive: Negative Neurological/Mental Status: Positive: Negative Psychological: Positive: Negative Physical Exam - Summary Physical Exam Summary: GENERAL: NAD. WDWN. No pain distress. SKIN: No rashes, sores, lesions, or open wounds. HEENT: Head: AT/NC Eyes: EOM intact. Conjunctiva clear without inflammation or discharge. Ears: Hearing grossly normal. TMs intact, no bulging, erythema, or edema. Nose: Nasal mucosa pink and moist. NTTP maxillary and frontal sinus. Throat: Posterior oropharynx without exudates, erythema, or tonsillar enlargement. Uvula midline. NECK: Supple. Nontender. No lymphadenopathy. CHEST: CTAB. No r/r/w. No accessory muscle use. Breathing comfortably and in no distress. CV: RRR. Pulses intact. Cap refill <2seconds NEURO: Alert. PSYCH: Age appropriate behavior. Triage Information Reviewed: Yes Vital Signs: Vital Signs: Temp Pulse Resp BP Pulse Ox 98.7 F 100 18 128/69 100 12/01/19 16:05 12/01/19 16:05 12/01/19 16:05 12/01/19 16:05 12/01/19 16:05 Laboratory Tests 12/01/19 12/01/19 16:01 16:21 Influenza A (Rapid) Negative Influenza B (Rapid) Negative Group A Strep Rapid Negative BuPROPion XL* [Bupropion XL*] 300 mg PO DAILY 01/08/18 [History Confirmed ] Omeprazole CAP (NF) [Prilosec CAP* 20 MG] 40 mg PO DAILY 01/08/18 [History Confirmed 12/01/19] Zolpidem TAB* [Ambien*] 10 mg PO BEDTIME PRN 01/08/18 [History Confirmed ] fentaNYL PATCH 25 MCG/HR* [Duragesic PATCH 25 Mcg/Hr*] 25 mcg TRANSDERM Q72H [History Confirmed 12/01/19] fentaNYL PATCH 12 MCG/HR * [Duragesic Patch 12 Mcg/Hr *] 12 mcg TRANSDERM Q72H 08/22/18 [History Confirmed 12/01/19] Cyclobenzaprine TAB* [Flexeril 10 MG TAB*] 10 mg PO BID PRN MDD 2 02/03/19 [ History Confirmed 12/01/19] Levothyroxine TAB* [Synthroid TAB*] 175 mcg PO DAILY 04/17/19 [History Confirmed 12/01/19] Hydrocodone/Acetaminophen [Franklin 7.5-325 Tablet] 1 each PO QID PRN MDD 4 [History Confirmed 12/01/19] clonazePAM TAB(*) [KlonoPIN TAB(*)] 1 mg PO BID 06/11/19 [History Confirmed ] Amoxicillin PO (*) [Amoxicillin 875 MG (*)] 875 mg PO BID #14 tab 12/01/19 [Rx] Vital Signs Reviewed: Yes Flu Course/Dx - Course Course Of Treatment: POC strep and flu negative. Exam unremarkable. I discussed viral vs bacterial causes with the pt and, given her medical history , she prefers to be on anbx at this time. - Differential Dx/Diagnosis Provider Diagnosis: Pharyngitis Discharge ED - Sign-Out/Discharge Documenting (check all that apply): Patient Departure All imaging exams completed and their final reports reviewed: No Studies - Discharge Plan Condition: Stable Disposition: HOME Prescriptions: Amoxicillin PO (*) [Amoxicillin 875 MG (*)] 875 mg PO BID #14 tab Patient Education Materials: Pharyngitis (ED) Referrals: Liz Bowen MD [Primary Care Provider] - Additional Instructions: STREP AND FLU TEST NEGATIVE TODAY Your symptoms are likely from a viral infection. Viral infections do not respond to antibiotics and are limited to the treatment of symptoms. Viral infections typically run their course in 7-10 days. Given your medical history, you are being treated with antibiotics at this time. Drink plenty of fluids, especially if you are running any fever. Use salt water gargles several times a day. Take over the counter acetaminophen (Tylenol) or ibuprofen (Advil, Motrin) according to directions as needed for pain or fever. You may also use Chloraseptic spray or Cepacol lonzenges according to directions which contain a numbing medication and can provide some temporary relief from a sore throat. Return here or follow up with your primary care provider in 7 days if symptoms persist. - Billing Disposition and Condition Condition: STABLE Disposition: Home
[2019-12-01 16:07] VITALS: BP 128/69
[2019-12-01 16:12] LABS: Influenza A Molecular Negative (Negative); Influenza B Molecular Negative (Negative)
== END 2019-12-01 16:42 | disposition home or self-care (01) ==
LOC: UCEAST 14:58
DX: J02.9 Acute pharyngitis, unspecified (principal); R53.83 Other fatigue; M79.10 Myalgia, unspecified site; F32.9 Major depressive disorder, single episode, unspecified; G89.29 Other chronic pain; C85.91 Non-Hodgkin lymphoma, unspecified, lymph nodes of head, face, and neck; Z88.8 Allergy status to other drugs, medicaments and biological substances; Z79.891 Long term (current) use of opiate analgesic; Z79.899 Other long term (current) drug therapy
CPT/HCPCS: 87651; 99212; G0463

== ENCOUNTER 2019-12-19 11:07 | Emergency (ER) | payer BC ==
--- OUTSIDE RECORDS SUMMARY | 2019-12-19 11:11 | XMS REPORT | Continuity of Care Document ---
:1965 External Reference #:[id number] Author Name Chaya Rodriguez MD (transmitted by agent of provider Saadia Sutton) Address [address] [place] [address] Care Team Providers Name Role Phone Liz Bowen MD - Internal Care Team Information Penciller Medicine Sasha Oliveros N.P. - Adult Health Care Team Information Penciller Problems Active Problems Provider Date Lumbar radiculopathy Asaf Pickens M.D. Onset: 02/18/2017 Low back pain Asaf Pickens M.D. Onset: 06/19/2017 Degeneration of lumbar intervertebral disc Asaf Pickens M.D. Onset: 2016 Social History Type Date Description Comments Sex Unknown ETOH Use Occasionally consumes alcohol Tobacco Use Start: Unknown Patient has never smoked Recreational Drug Use Denies Drug Use Smoking Status Reviewed: 12/09/19 Patient has never smoked Exercise Type/Frequency Does [...] Unknown 150mcg By Mouth Every Tablets Day Medications Administered in Office Medication SIG Qnty Indications Ordering Provider Date Records Fee Chaya Rodriguez MD 11/30/2019 Injection Immunizations Description No Information Available Vital Signs Date Vital Result Comment 12/09/2019 1:19pm Height 67 inches 5'7" Weight 288.00 lb Heart Rate 92 /min BP Systolic 116 mmHg BP Diastolic 68 mmHg Pain Level 4 left Si BMI (Body Mass Index) 45.1 kg/m2 11/19/2019 3:16pm Height 67 inches 5'7" Weight 292.00 lb Heart Rate 72 /min BP Systolic Sitting 112 mmHg BP Diastolic Sitting 74 mmHg Respiratory Rate 18 /min Body Temperature 97.7 F BMI (Body Mass Index) 45.7 kg/m2 Results Test Acquired Date Facility Test Result H/L Range Note Cytology 11/25/2019 [facility] Cytology SEE RESULT 1 [employer] [address] [place] [address] [phone] PDFReport SEE IMAGE 1 SEE RESULT BELOW Name: REYNA STERLING : [address]: Enoch Humphreys MD Acct: [id number] Unit: [id number] AGE: 54 Location: LAB Re11/25/19 SEX: F Status: REG REF SPEC: [id number] ANDI: 11/25/19-[address]: Enoch Humphreys MD REQ: [id number] RECD: 11/25/19 STATUS: ZIYAD VALENTE DR: Kennedy Moctezuma MD _ ORDERED: CYTO ADEQ-1ST P FINAL DIAGNOSIS Back, subcutaneous mass: -- Biopsy not performed. See comment. Comment: A midline lower back rockhard somewhat fixed 1.5 cm nodular mass is noted. Review of imaging studies demonstrates and entirely calcified nodule. Based on clinical exam and imaging findings this lesion is felt to not be amenable to fine-needle biopsy. Correlation with imaging findings and additional studies as warranted. SPECIMEN(S) RECEIVED Back region NEC - BACK MASS CLINICAL HISTORY Back mass. CONTINUED ON NEXT PAGE DEPARTMENT OF PATHOLOGY, [facility] [employer] [address] Kennedy Moctezuma M.D. Director MALKA # [id number] Signed by and Reported on: Kennedy Moctezuma MD [address] END OF REPORT DEPARTMENT OF PATHOLOGY, [facility] [address] [place], [place] [address] Kennedy Moctezuma M.D. Director MALKA # [id number] Procedures Date Code Description Status 09/16/2019 07484 Nerve Conduction -10 Studies Completed 09/16/2019 51713 Needle Electromyography Complete, Five Or More Muscles Completed Studied Medical Devices Description No Information Available Encounters Type Date Location Provider Dx Diagnosis [facility] Enoch Humphreys MD, R22.2 Localized 3:00p Of Kirby MADSEN swelling, mass and lump, trunk Office Visit 08/06/2019 [facility] M48.02 Spinal stenosis, 1:00p Services Of Kirby Rodriguez MD cervical region M47.22 Other spondylosis with radiculopathy, cervical region M51.36 Other intervertebral disc degeneration, lumbar region M43.16 Spondylolisthesis, lumbar region Office Visit 07/24/2019 [facility] M51.36 Other 3:00p Services [facility] Tran intervertebral disc degeneration, lumbar region M54.16 Radiculopathy, lumbar region M54.5 Low back pain Assessments Date Code Description Provider 12/09/2019 M48.02 Spinal stenosis, cervical region Chaya Rodriguez MD 12/09/2019 M51.36 Other intervertebral disc degeneration, Chaya Rodriguez MD lumbar region 12/09/2019 M43.16 Spondylolisthesis, lumbar region Chaya Rodriguez MD 11/19/2019 R22.2 Localized swelling, mass and lump, trunk Enoch Humphreys MD, [facility] 09/16/2019 G62.9 Polyneuropathy, unspecified Meron Bejarano M.D. 09/16/2019 G56.01 Carpal tunnel syndrome, right upper limb Meron Bejarano M.D. 08/06/2019 M48.02 Spinal stenosis, cervical region Chaya Rodriguez MD 08/06/2019 M47.22 Other spondylosis with radiculopathy, Chaya Rodriguez MD cervical region 08/06/2019 M51.36 Other intervertebral disc degeneration, Chaya Rodriguez MD lumbar region 08/06/2019 M43.16 Spondylolisthesis, lumbar region Chaya Rodriguez MD 07/24/2019 M51.36 Other intervertebral disc degeneration, [facility] Ayala lumbar region 07/24/2019 M54.16 Lumbar radiculopathy YUE Ayala 07/24/2019 M54.5 Low back pain YUE Ayala Plan of Treatment 12/09/2019 - Vassilios Dimopoulos, MDM48.02 Spinal stenosis, cervical [id number] Other intervertebral disc degeneration, lumbar regionFollow up:RV prnM43.16 Spondylolisthesis, lumbar region Functional Status Description No Information Available Mental Status Description No Information Available Referrals Refer to Reason for Referral Status Appt Date Enoch Humphreys MD Possible lipoma Created [address] [place] [address] [phone]
[2019-12-19 11:15] VITALS: BP 120/74
--- NOTE | 2019-12-19 11:53 | UC ---
Respiratory Complaint HPI - HPI Summary HPI Summary: patient is concerned because she has been coughing and bring up foul sputum--- she states she get PNA when every this happens----she denies fever and SOB--- patient works in doctors office - History of Current Complaint Chief Complaint: UCRespiratory Stated Complaint: RESP COMPLAINT Time Seen by Provider: 12/19/19 11:39 Hx Obtained From: Patient ?: No Onset/Duration: Sudden Onset, Lasting Days - 1 Timing: Constant Pain Intensity: 0 Character: Cough: Productive Aggravating Factors: Exertion, Deep Breaths, Recumbent Position Alleviating Factors: Nothing Associated Signs And Symptoms: Positive: Pleuritic Chest Pain, URI - Allergies/Home Medications Allergies/Adverse Reactions: Allergies Allergy/AdvReac Type Severity Reaction Status Date / Time amitriptyline [From Elavil] Allergy See Comment Verified 12/19/19 11:16 aripiprazole [From Abilify] AdvReac Dizziness Verified 12/10/19 15:22 Home Medications: Home Medications BuPROPion XL* [Bupropion XL*] 300 mg PO DAILY 01/08/18 [History Confirmed ] Omeprazole CAP (NF) [Prilosec CAP* 20 MG] 40 mg PO DAILY 01/08/18 [History Confirmed 12/19/19] Zolpidem TAB* [Ambien*] 10 mg PO BEDTIME PRN 01/08/18 [History Confirmed ] fentaNYL PATCH 25 MCG/HR* [Duragesic PATCH 25 Mcg/Hr*] 25 mcg TRANSDERM Q72H [History Confirmed 12/19/19] Cyclobenzaprine TAB* [Flexeril 10 MG TAB*] 10 mg PO BID PRN MDD 2 02/03/19 [ History Confirmed 12/19/19] Hydrocodone/Acetaminophen [[place] 7.5-325 Tablet] 1 each PO QID PRN MDD 4 [History Confirmed 12/19/19] clonazePAM TAB(*) [Klonopin TAB(*)] 1 mg PO BID 06/11/19 [History Confirmed 05/02] Levothyroxine TAB* [Synthroid 150 MCG TAB*] 150 mcg PO DAILY 12/10/19 [History Confirmed 12/19/19] Azithromycin TAB* [Zithromax TAB (Z-JENNIFER) 250 mg #6 tabs] 2 tab PO .TODAY, THEN 1 DAILY #1 jennifer 12/19/19 [Rx] Benzonatate CAP* [Tessalon 100 MG CAP*] 100 mg PO TID PRN #30 cap 12/19/19 [Rx] PMH/Surg Hx/FS Hx/Imm Hx Previously Healthy: No Endocrine History: Hypothyroidism GI/ History: Gastroesophageal Reflux Psychological History: Anxiety, Depression - Surgical History Surgical History: Yes Surgery Procedure, Year, and Place: SPLENECTOMY, CHOLECYSTECTOMY, GASTRIC BYPASS , HYSTERECTOMY,lymphnode DISECTION neck yrs ago. LT CARPAL TUNNEL - Family History Known Family History: Positive: Cardiac Disease - father - afib, Diabetes - father, Non-Contributory - Social History Occupation: Employed Full-time Lives: With Family Alcohol Use: Rare Alcohol Amount: 1/2 drink Substance Use Type: None Smoking Status (MU): Never Smoked Tobacco - Immunization History Most Recent Influenza Vaccination: none Most Recent Pneumonia Vaccination: 2017 Review of Systems All Other Systems Reviewed And Are Negative: Yes Constitutional: Positive: Negative Skin: Positive: Negative Eyes: Positive: Negative ENT: Positive: Negative Respiratory: Positive: Cough Cardiovascular: Positive: Negative Gastrointestinal: Positive: Negative Genitourinary: Positive: Negative Motor: Positive: Negative Neurovascular: Positive: Negative Musculoskeletal: Positive: Negative Neurological/Mental Status: Positive: Negative Psychological: Positive: Negative Is Patient Immunocompromised?: No Physical Exam Triage Information Reviewed: Yes Appearance: Well-Appearing, No Pain Distress, Obese Vital Signs: Initial Vital Signs Temp 98.6 F 12/19/19 11:13 Pulse 94 12/19/19 11:13 Resp 18 12/19/19 11:13 BP 120/74 12/19/19 11:13 Pulse Ox 99 12/19/19 11:13 Vital Signs Reviewed: Yes Eye Exam: Normal Eyes: Positive: Conjunctiva Clear ENT Exam: Normal ENT: Positive: Normal ENT inspection, Hearing grossly normal. Negative: Trismus , Muffled voice, Hoarse voice Dental Exam: Normal Neck exam: Normal Neck: Positive: Supple, Nontender, No Lymphadenopathy Respiratory Exam: Normal Respiratory: Positive: Chest non-tender, Lungs clear, Normal breath sounds, No respiratory distress, No accessory muscle use Cardiovascular Exam: Normal Cardiovascular: Positive: RRR, No Murmur, Pulses Normal, Brisk Capillary Refill Musculoskeletal Exam: Normal Musculoskeletal: Positive: Strength Intact, ROM Intact, No Edema Neurological Exam: Normal Neurological: Positive: Alert, Muscle Tone Normal Psychological Exam: Normal Skin Exam: Normal Respiratory Course/Dx - Course Course Of Treatment: increase fluids tessalgladys josephthromax follow with pcp rpn - Differential Dx/Diagnosis Provider Diagnosis: Bronchitis Discharge ED - Sign-Out/Discharge Documenting (check all that apply): Patient Departure All imaging exams completed and their final reports reviewed: No Studies - Discharge Plan Condition: Stable Disposition: HOME Prescriptions: Azithromycin TAB* [Zithromax TAB (Z-JENNIFER) 250 mg #6 tabs] 2 tab PO .TODAY, THEN 1 DAILY #1 jennifer Benzonatate CAP* [Tessalon 100 MG CAP*] 100 mg PO TID PRN #30 cap PRN Reason: cough Patient Education Materials: Acute Bronchitis (ED) Referrals: Liz Bowen MD [Primary Care Provider] - If Needed - Billing Disposition and Condition Condition: STABLE Disposition: Home
== END 2019-12-19 12:03 | disposition home or self-care (01) ==
LOC: UCEAST 11:07
DX: J40 Bronchitis, not specified as acute or chronic (principal); E03.9 Hypothyroidism, unspecified; K21.9 Gastro-esophageal reflux disease without esophagitis; F41.9 Anxiety disorder, unspecified; F32.9 Major depressive disorder, single episode, unspecified; Z79.899 Other long term (current) drug therapy; Z88.8 Allergy status to other drugs, medicaments and biological substances
CPT/HCPCS: 99212; G0463

== ENCOUNTER 2020-05-30 07:50 | Inpatient (IN) ==
[2020-05-30] MEDS ORDERED: NS 0.9% 1000 ml BAG 1,000 ML IV ONE (08:55)
[2020-05-30 10:09] LABS: ABS Basophils 0.1 10^3/ul (0-0.2); ABS Eosinophils 0.1 10^3/ul (0-0.6); ABS Lymphocytes 0.5 10^3/ul (1.0-4.8); ABS Monocytes 0.7 10^3/ul (0-0.8); ABS Neutrophils 10.6 10^3/ul (1.5-7.7); Eosinophil % 0.5 %; Hematocrit 39 % (35-47); Hemoglobin 12.8 g/dL (12.0-16.0); Mean Corpuscular HGB Conc 33 g/dL (31-36); Mean Corpuscular Hemoglobin 30 pg (27-31); Mean Corpuscular Volume 92 fL (80-97); Mean Platelet Volume 7.5 fL (7.4-10.4); Platelet Count 406 10^3/uL (150-450); Red Blood Count 4.22 10^6 /uL (3.70-4.87); Red Cell Distribution Width 17 % (10-15); White Blood Count 11.9 10^3/uL (3.5-10.8)
[2020-05-30 10:20] LABS: Activated Partial Thrombo Time 29.1 seconds (26.0-38.0); INR 1.1 (0.82-1.09)
[2020-05-30 10:24] LABS: Troponin I 0.01 ng/mL (<0.03)
[2020-05-30 10:28] LABS: Albumin 4.3 g/dL (3.2-5.2); Albumin/Globulin Ratio 1.4 (1-3); Alkaline Phosphatase 121 U/L (34-104); Anion Gap 8 mmol/L (2-11); BUN/Creatinine Ratio 15.2 (8-20); Blood Urea Nitrogen 17 mg/dL (6-24); CO2 Carbon Dioxide 26 mmol/L (22-32); Calcium 9.7 mg/dL (8.6-10.3); Chloride 104 mmol/L (101-111); EGFR African American 61.6 (>60); EGFR Non-African American 50.9 (>60); Glucose 108 mg/dL (70-100); Potassium 3.8 mmol/L (3.5-5.0); Sodium 138 mmol/L (135-145); Total Protein 7.3 g/dL (6.4-8.9)
[2020-05-30] MEDS ORDERED: Iodixanol (CONTRAST) 320 MG/ML 100 ML SDV IV ONE ×2 (11:11→12:33)
[2020-05-30 11:27] LABS: ALT 1824 U/L (7-52); AST 2228 U/L (13-39)
[2020-05-30 12:49] LABS: Urine Appearance Clear; Urine Bilirubin Negative (Negative); Urine Blood Negative (Negative); Urine Color Yellow; Urine Glucose Negative (Negative); Urine Ketones Negative (Negative); Urine Nitrite Negative (Negative); Urine Protein Negative (Negative); Urine Specific Gravity 1.009 (1.010-1.030); Urine Urobilinogen Negative (Negative)
[2020-05-30 13:06] LABS: Urine Bacteria Absent (Absent); Urine Red Blood Cell Trace(0-2/hpf) (Absent); Urine Squamous Epithelial Cell Present (Absent); Urine White Blood Cell Trace(0-5/hpf) (Absent)
[2020-05-30] MEDS ORDERED: Ondansetron 4 mg VIAL 2 MG/ML 2 ml VIAL IV ONE (13:23)
[2020-05-30] MEDS ORDERED: HYDROcodone/ACETAMIN 5/325 mg TAB PO PRN (13:53)
[2020-05-30 13:59] LABS: C Reactive Protein 10.57 mg/L (<8.01)
[2020-05-30 14:01] LABS: Acetaminophen < 15 mcg/mL
[2020-05-30] MEDS: Morphine ER 30 mg TAB ** extended release PO SCH ×2 (15:23→20:22)
[2020-05-30] MEDS: Enoxaparin 40 MG/0.4 ML SYR SUBCUT SCH (15:26)
[2020-05-30] MEDS: Lactated Ringers 1000 ml BAG 1,000 ML IV SCH (18:19)
[2020-05-30 19:34] LABS: Hepatitis B Surface Antigen Nonreactive (Nonreactive)
[2020-05-30 19:39] LABS: Hepatitis A Ab IgM Negative (Negative); Hepatitis B Core IgM Nonreactive (Nonreactive)
[2020-05-30 20:00] LABS: Hepatitis C Antibody Reactive (Negative)
[2020-05-30] MEDS: Ondansetron 4 mg VIAL 2 MG/ML 2 ml VIAL IV PRN (20:23)
[2020-05-31] MEDS: Morphine ER 30 mg TAB ** extended release PO SCH ×3 (09:40→21:23)
[2020-05-31 10:12] LABS: ABS Basophils 0.1 10^3/ul (0-0.2); ABS Eosinophils 0.6 10^3/ul (0-0.6); ABS Lymphocytes 1.7 10^3/ul (1.0-4.8); ABS Monocytes 0.5 10^3/ul (0-0.8); ABS Neutrophils 3.2 10^3/ul (1.5-7.7); Eosinophil % 9.5 %; Hematocrit 35 % (35-47); Hemoglobin 11.8 g/dL (12.0-16.0); Lymphocyte % 28.1 %; Mean Corpuscular HGB Conc 33 g/dL (31-36); Mean Corpuscular Hemoglobin 31 pg (27-31); Mean Corpuscular Volume 92 fL (80-97); Mean Platelet Volume 7.2 fL (7.4-10.4); Platelet Count 318 10^3/uL (150-450); Red Blood Count 3.82 10^6 /uL (3.70-4.87); Red Cell Distribution Width 17 % (10-15)
[2020-05-31 10:37] LABS: Albumin 3.6 g/dL (3.2-5.2); Albumin/Globulin Ratio 1.4 (1-3); BUN/Creatinine Ratio 12.6 (8-20); Calcium 8.9 mg/dL (8.6-10.3); EGFR African American 82.4 (>60); EGFR Non-African American 68.1 (>60); Globulin 2.6 g/dL (2-4); Indirect Bilirubin 0.4 mg/dL (0.3-1.0); Potassium 3.7 mmol/L (3.5-5.0); Total Bilirubin 0.5 mg/dL (0.2-1.0); Total Protein 6.2 g/dL (6.4-8.9)
[2020-05-31] MEDS: Ondansetron 4 mg VIAL 2 MG/ML 2 ml VIAL IV PRN ×2 (11:29→23:57)
[2020-05-31] MEDS: Enoxaparin 40 MG/0.4 ML SYR SUBCUT SCH (13:35)
[2020-05-31] MEDS: Lactated Ringers 1000 ml BAG 1,000 ML IV SCH (15:50)
[2020-05-31 17:08] LABS: TSH Ultra Thyroid Stim Horm 3.12 mcIU/mL (0.34-5.60)
[2020-05-31 17:19] LABS: Folate > 20.00 ng/mL (>3.99)
[2020-05-31 17:21] LABS: Vitamin B12 > 1450 pg/mL (180-914)
[2020-06-01] MEDS: Lactated Ringers 1000 ml BAG 1,000 ML IV SCH (05:18)
[2020-06-01] MEDS: Ondansetron 4 mg VIAL 2 MG/ML 2 ml VIAL IV PRN (05:27)
[2020-06-01 07:36] LABS: ABS Basophils 0.1 10^3/ul (0-0.2); ABS Eosinophils 0.6 10^3/ul (0-0.6); ABS Lymphocytes 1.9 10^3/ul (1.0-4.8); ABS Monocytes 0.5 10^3/ul (0-0.8); ABS Neutrophils 3.8 10^3/ul (1.5-7.7); Eosinophil % 8.6 %; Hematocrit 34 % (35-47); Hemoglobin 11.3 g/dL (12.0-16.0); Lymphocyte % 28.1 %; Mean Corpuscular HGB Conc 33 g/dL (31-36); Mean Corpuscular Hemoglobin 31 pg (27-31); Mean Corpuscular Volume 92 fL (80-97); Mean Platelet Volume 7.3 fL (7.4-10.4); Platelet Count 318 10^3/uL (150-450); Red Cell Distribution Width 17 % (10-15); White Blood Count 6.9 10^3/uL (3.5-10.8)
[2020-06-01 07:47] LABS: Albumin 3.5 g/dL (3.2-5.2); Albumin/Globulin Ratio 1.3 (1-3); BUN/Creatinine Ratio 10.4 (8-20); Calcium 8.9 mg/dL (8.6-10.3); EGFR African American 94.9 (>60); EGFR Non-African American 78.4 (>60); Globulin 2.6 g/dL (2-4); Indirect Bilirubin 0.3 mg/dL (0.3-1.0); Potassium 3.8 mmol/L (3.5-5.0); Total Bilirubin 0.4 mg/dL (0.2-1.0); Total Protein 6.1 g/dL (6.4-8.9)
[2020-06-01 07:55] LABS: INR 1.11 (0.82-1.09)
[2020-06-01] MEDS: Morphine ER 30 mg TAB ** extended release PO SCH ×2 (09:20→13:52)
[2020-06-01 11:50] VITALS: BP 116/72
[2020-06-01] MEDS: Enoxaparin 40 MG/0.4 ML SYR SUBCUT SCH (13:52)
[2020-06-02 14:52] LABS: Cytomegalovirus IgG Antibody Positive (Negative)
[2020-06-02 16:11] LABS: Smooth Muscle Antibody Negative (Negative)
[2020-06-02 17:19] LABS: Mitochondria M2 Antibody <0.1 U
[2020-06-03 18:02] LABS: Hepatitis B Surface Ab Indeterminate (Immune)
[2020-06-04 14:32] LABS: EBV Capsid Ag IgG Ab Positive (Negative); EBV Capsid Ag IgM Ab Negative (Negative); Epstein-Barr Nuclear Antigen Positive (Negative)
[2020-06-07 15:07] LABS: Hepatitis D Antibody Negative (Negative)
== END 2020-06-01 16:25 | disposition home or self-care (01) ==
LOC: MED 07:50 → ED 07:50 → MED 16:13
PROVIDERS: ADMIT Internal Medicine; ATTEND Internal Medicine

== ENCOUNTER 2020-07-04 10:54 | Inpatient (IN) ==
[2020-07-04] MEDS ORDERED: NS 0.9% 1000 ml BAG 1,000 ML IV ONE ×2 (11:24→14:10)
[2020-07-04 11:34] LABS: ABS Basophils 0.1 10^3/ul (0-0.2); ABS Eosinophils 0.1 10^3/ul (0-0.6); ABS Lymphocytes 1.7 10^3/ul (1.0-4.8); ABS Monocytes 0.7 10^3/ul (0-0.8); ABS Neutrophils 10.5 10^3/ul (1.5-7.7); Hematocrit 36 % (35-47); Hemoglobin 11.6 g/dL (12.0-16.0); Lymphocyte % 13.3 %; Mean Corpuscular HGB Conc 32 g/dL (31-36); Mean Corpuscular Hemoglobin 30 pg (27-31); Mean Corpuscular Volume 93 fL (80-97); Mean Platelet Volume 7.1 fL (7.4-10.4); Platelet Count 330 10^3/uL (150-450); Red Blood Count 3.91 10^6 /uL (3.70-4.87); Red Cell Distribution Width 18 % (10-15); White Blood Count 13.2 10^3/uL (3.5-10.8)
[2020-07-04 11:50] LABS: Albumin 3.6 g/dL (3.2-5.2); Albumin/Globulin Ratio 1.2 (1-3); BUN/Creatinine Ratio 26.4 (8-20); C Reactive Protein 287.2 mg/L (<8.01); Calcium 8.3 mg/dL (8.6-10.3); EGFR African American 62.9 (>60); Globulin 2.9 g/dL (2-4); Potassium 3.2 mmol/L (3.5-5.0); Total Bilirubin 0.5 mg/dL (0.2-1.0); Total Protein 6.5 g/dL (6.4-8.9)
[2020-07-04 12:48] LABS: Urine Appearance Clear; Urine Bilirubin Negative (Negative); Urine Blood Negative (Negative); Urine Color Yellow; Urine Glucose Negative (Negative); Urine Ketones Negative (Negative); Urine Nitrite Negative (Negative); Urine Protein Negative (Negative); Urine Specific Gravity 1.009 (1.010-1.030); Urine Urobilinogen Negative (Negative)
[2020-07-04 12:58] LABS: Influenza A Molecular Negative (Negative); Influenza B Molecular Negative (Negative)
[2020-07-04 13:12] LABS: Urine Bacteria 1+ (Absent); Urine Red Blood Cell Trace(0-2/hpf) (Absent); Urine Squamous Epithelial Cell Present (Absent); Urine White Blood Cell Trace(0-5/hpf) (Absent)
[2020-07-04] MEDS ORDERED: cefTRIAXone 2 GM ADDV.VIAL 2 GM in NS 0.9% 100 ml BAG 100 ML IVPB ONE (14:06)
[2020-07-04] MEDS ORDERED: Vancomycin 1,500 MG in NS 0.9% 250 ml 250 ML IVPB ONE (14:06)
[2020-07-04] MEDS ORDERED: NS 0.9% IV ONE (14:15)
[2020-07-04] MEDS ORDERED: Acyclovir IV 600 MG in NS 0.9% 100 ml BAG 100 ML IVPB ONE (15:00)
[2020-07-04] MEDS ORDERED: Acyclovir IV 500 MG/10 ML 100 ML VIAL (500 MG) IVPB SCH (15:00)
[2020-07-04] MEDS ORDERED: Vancomycin 1,000 MG in NS 0.9% 250 ml 250 ML IVPB ONE (16:06)
[2020-07-04] MEDS ORDERED: Potassium Chlor 20 meq TAB.ER PO ONE (16:09)
[2020-07-04] MEDS ORDERED: Vancomycin per Pharmacy 1 EA NOTE FOLLOW UP SCH (17:00)
[2020-07-04] MEDS ORDERED: NS 0.9% w/ 20 Meq KCL 1000 ml 1,000 ML IV SCH (17:00)
[2020-07-04] MEDS: Ondansetron ODT 4 mg TAB 4 MG TAB PO SCH (17:53)
[2020-07-04] MEDS: Azithromycin 500 mg/250 ml NS 500 MG/250 ML BAG IVPB SCH (21:21)
[2020-07-04] MEDS: Heparin 5000 UNITS/ML 1 mL VIAL SUBCUT SCH (21:26)
[2020-07-04] MEDS: Morphine ER 30 mg TAB ** extended release PO SCH (21:26)
[2020-07-04] MEDS: Vancomycin(*) 1,250 MG IV Q8H IVPB SCH (23:45)
[2020-07-05] MEDS: Ondansetron ODT 4 mg TAB 4 MG TAB PO SCH ×3 (01:19→17:41)
[2020-07-05] MEDS: cefTRIAXone 2 GM ADDV.VIAL 2 GM in NS 0.9% 100 ml BAG 100 ML IV SCH ×2 (04:05→16:01)
[2020-07-05] MEDS: Heparin 5000 UNITS/ML 1 mL VIAL SUBCUT SCH ×2 (06:02→20:59)
[2020-07-05] MEDS: Vancomycin(*) 1,250 MG IV Q8H IVPB SCH ×3 (08:15→23:46)
[2020-07-05] MEDS: Morphine ER 30 mg TAB ** extended release PO SCH ×3 (08:15→20:58)
[2020-07-05 09:08] LABS: ABS Eosinophils 0.4 10^3/ul (0-0.6); ABS Lymphocytes 2.1 10^3/ul (1.0-4.8); ABS Monocytes 0.6 10^3/ul (0-0.8); ABS Neutrophils 4.6 10^3/ul (1.5-7.7); Eosinophil % 4.7 %; Hematocrit 25 % (35-47); Hemoglobin 8.2 g/dL (12.0-16.0); Lymphocyte % 27.4 %; Mean Corpuscular HGB Conc 33 g/dL (31-36); Mean Corpuscular Hemoglobin 31 pg (27-31); Mean Corpuscular Volume 93 fL (80-97); Mean Platelet Volume 7.2 fL (7.4-10.4); Platelet Count 253 10^3/uL (150-450); Red Blood Count 2.69 10^6 /uL (3.70-4.87); Red Cell Distribution Width 18 % (10-15); White Blood Count 7.8 10^3/uL (3.5-10.8)
[2020-07-05 09:31] LABS: Albumin 2.6 g/dL (3.2-5.2); Albumin/Globulin Ratio 1.1 (1-3); BUN/Creatinine Ratio 21.4 (8-20); C Reactive Protein 208.48 mg/L (<8.01); Calcium 6.8 mg/dL (8.6-10.3); EGFR African American 105.9 (>60); EGFR Non-African American 87.5 (>60); Globulin 2.3 g/dL (2-4); Potassium 4.7 mmol/L (3.5-5.0); Total Bilirubin 0.2 mg/dL (0.2-1.0); Total Protein 4.9 g/dL (6.4-8.9)
[2020-07-05] MEDS ORDERED: Vancomycin Trough Check NOTE FOLLOW UP ONE (15:30)
[2020-07-05 15:57] LABS: Hematocrit 30 % (35-47); Hemoglobin 9.8 g/dL (12.0-16.0)
[2020-07-05] MEDS: Azithromycin 500 mg/250 ml NS 500 MG/250 ML BAG IVPB SCH ×2 (16:44→17:41)
[2020-07-05] MEDS: HYDROcodone/ACETAMIN 5/325 mg TAB PO PRN (17:46)
[2020-07-06] MEDS: Ondansetron ODT 4 mg TAB 4 MG TAB PO SCH ×2 (01:12→08:48)
[2020-07-06] MEDS: cefTRIAXone 2 GM ADDV.VIAL 2 GM in NS 0.9% 100 ml BAG 100 ML IV SCH (03:44)
[2020-07-06] MEDS: Heparin 5000 UNITS/ML 1 mL VIAL SUBCUT SCH (05:47)
[2020-07-06] MEDS: Morphine ER 30 mg TAB ** extended release PO SCH (08:48)
[2020-07-06] MEDS: Vancomycin(*) 1,250 MG IV Q8H IVPB SCH (08:48)
[2020-07-06] MEDS: HYDROcodone/ACETAMIN 5/325 mg TAB PO PRN (08:53)
[2020-07-06 09:55] LABS: ABS Basophils 0.1 10^3/ul (0-0.2); ABS Eosinophils 0.4 10^3/ul (0-0.6); ABS Lymphocytes 2.7 10^3/ul (1.0-4.8); ABS Monocytes 0.6 10^3/ul (0-0.8); ABS Neutrophils 3.7 10^3/ul (1.5-7.7); Eosinophil % 5.6 %; Hematocrit 33 % (35-47); Hemoglobin 10.5 g/dL (12.0-16.0); Lymphocyte % 36.5 %; Mean Corpuscular HGB Conc 33 g/dL (31-36); Mean Corpuscular Hemoglobin 30 pg (27-31); Mean Corpuscular Volume 92 fL (80-97); Mean Platelet Volume 7.1 fL (7.4-10.4); Platelet Count 342 10^3/uL (150-450); Red Blood Count 3.52 10^6 /uL (3.70-4.87); Red Cell Distribution Width 19 % (10-15); White Blood Count 7.5 10^3/uL (3.5-10.8)
[2020-07-06 10:10] LABS: BUN/Creatinine Ratio 13.3 (8-20); Calcium 8.8 mg/dL (8.6-10.3); EGFR Non-African American 71.9 (>60); Potassium 3.7 mmol/L (3.5-5.0)
[2020-07-06 12:32] VITALS: BP 116/57
[2020-07-07] MEDS ORDERED: Vancomycin Trough Check NOTE FOLLOW UP ONE (08:00)
== END 2020-07-06 13:15 | disposition home or self-care (01) | DRG 710 ==
LOC: ED 10:54 → MED 16:12
PROVIDERS: ADMIT Internal Medicine; ATTEND Internal Medicine

== ENCOUNTER 2021-04-10 09:08 | Inpatient (IN) ==
[2021-04-10 11:38] LABS: ABS Eosinophils 0.2 10^3/ul (0-0.6); ABS Lymphocytes 2.8 10^3/ul (1.0-4.8); ABS Monocytes 1.1 10^3/ul (0-0.8); Eosinophil % 1.2 %; Hematocrit 33 % (35-47); Hemoglobin 10.7 g/dL (12.0-16.0); Lymphocyte % 15.3 %; Mean Corpuscular Hemoglobin 30 pg (27-31); Mean Corpuscular Hgb Conc 33 g/dL (31-36); Mean Corpuscular Volume 93 fL (80-97); Mean Platelet Volume 6.7 fL (7.4-10.4); Platelet Count 410 10^3/uL (150-450); Red Blood Count 3.52 10^6 /uL (3.70-4.87); Red Cell Distribution Width 14 % (10-15); White Blood Count 18.1 10^3/uL (3.5-10.8)
[2021-04-10] MEDS: NS 0.9% 1000 ml BAG 1,000 ML IV ONE (11:44)
[2021-04-10 11:54] LABS: Influenza A Molecular Negative (Negative); Influenza B Molecular Negative (Negative)
[2021-04-10 12:00] LABS: Albumin 3.7 g/dL (3.2-5.2); Albumin/Globulin Ratio 1.1 (1-3); Calcium 8.9 mg/dL (8.6-10.3); Creatinine, Serum 0.98 mg/dL (0.51-0.95); EGFR African American 71.6 (>60); EGFR Non-African American 59.1 (>60); Globulin 3.3 g/dL (2-4); Magnesium 2.1 mg/dL (1.9-2.7); Potassium 3.6 mmol/L (3.5-5.0); Total Bilirubin 0.6 mg/dL (0.2-1.0)
[2021-04-10] MEDS ORDERED: NS 0.9% 250 ml 250 ML ONE (13:03)
[2021-04-10] MEDS: cefTRIAXone 1 gm/50 mL NS BAG 1 GM/50 ML BAG IV ONE (13:09)
[2021-04-10] MEDS: DOXYcycline 100 MG in NS 0.9% 250 ml 250 ML IVPB ONE (13:33)
[2021-04-10 13:46] LABS: Rapid COVID-19 Molecular Undetected (Undetected)
[2021-04-10] MEDS ORDERED: Albuterol HFA INHALER 8 gm MDI INH PRN (14:20)
[2021-04-10] MEDS ORDERED: DOXYcycline 100 MG in NS 0.9% 250 ml 250 ML IVPB SCH (15:00)
[2021-04-10] MEDS: NS 0.9% 1000 ml BAG 1,000 ML IV SCH (15:18)
[2021-04-10] MEDS: Iodixanol (CONTRAST) 320 MG/ML 100 ML SDV IV ONE (16:31)
[2021-04-10] MEDS: HYDROcodone/ACETAMIN 5/325 mg TAB PO PRN (16:52)
[2021-04-10] MEDS: Heparin 5000 UNITS/ML 1 mL VIAL SUBCUT SCH (16:53)
[2021-04-10 16:56] LABS: C Reactive Protein 166.27 mg/L (<8.01)
[2021-04-10 17:48] LABS: Urine Appearance Clear; Urine Bilirubin Negative (Negative); Urine Blood Negative (Negative); Urine Color Straw; Urine Glucose Negative (Negative); Urine Ketones Negative (Negative); Urine Nitrite Negative (Negative); Urine Protein Negative (Negative); Urine Specific Gravity 1.004 (1.002-1.030); Urine Urobilinogen Negative (Negative)
[2021-04-10 22:47] LABS: SARS Coronavirus-2 Undetected (Undetected)
[2021-04-11] MEDS: guaiFENesin DM SUGAR FREE 100 MG/10 MG 5 ML UDC PO PRN (02:12)
[2021-04-11] MEDS: DOXYcycline 100 MG in NS 0.9% 250 ml 250 ML IVPB SCH (02:12)
[2021-04-11 05:45] LABS: ABS Eosinophils 0.4 10^3/ul (0-0.6); ABS Lymphocytes 2.7 10^3/ul (1.0-4.8); ABS Monocytes 1.1 10^3/ul (0-0.8); Hematocrit 30 % (35-47); Hemoglobin 9.7 g/dL (12.0-16.0); Lymphocyte % 20.3 %; Mean Corpuscular Hemoglobin 31 pg (27-31); Mean Corpuscular Hgb Conc 32 g/dL (31-36); Mean Corpuscular Volume 95 fL (80-97); Mean Platelet Volume 6.9 fL (7.4-10.4); Platelet Count 357 10^3/uL (150-450); Red Blood Count 3.18 10^6 /uL (3.70-4.87); Red Cell Distribution Width 14 % (10-15); White Blood Count 13.2 10^3/uL (3.5-10.8)
[2021-04-11 06:01] LABS: Albumin 3.3 g/dL (3.2-5.2); Albumin/Globulin Ratio 1.2 (1-3); Calcium 8.2 mg/dL (8.6-10.3); Creatinine, Serum 1.06 mg/dL (0.51-0.95); EGFR African American 65.4 (>60); Globulin 2.8 g/dL (2-4); Potassium 3.6 mmol/L (3.5-5.0); Total Bilirubin 0.5 mg/dL (0.2-1.0); Total Protein 6.1 g/dL (6.4-8.9)
[2021-04-11 09:29] LABS: TSH Ultra Thyroid Stim Horm 3.64 mcIU/mL (0.34-5.60)
[2021-04-11] MEDS: NS 0.9% 500 ml BAG 500 ML IV ONE (09:33)
[2021-04-11] MEDS: cefTRIAXone 1 gm/50 mL NS BAG 1 GM/50 ML BAG IVPB SCH (11:39)
[2021-04-11] MEDS: Furosemide 40 mg/4 ml IV VIAL IV ONE (11:49)
[2021-04-11] MEDS: Furosemide 40 mg/4 ml IV VIAL ONE (11:53)
[2021-04-11] MEDS: Aspirin EC 81 mg TAB.EC (enteric coated) PO ONE (11:59)
[2021-04-11] MEDS: Aspirin EC 81 mg TAB.EC (enteric coated) ONE (12:02)
[2021-04-11 12:53] LABS: Hepatitis B Surface Antigen Nonreactive (Nonreactive)
[2021-04-11 12:58] LABS: Hepatitis A Ab IgM Negative (Negative)
[2021-04-11 12:59] LABS: Hepatitis B Core IgM Nonreactive (Nonreactive)
[2021-04-11] MEDS: Morphine ER 30 mg TAB ** extended release PO PRN (13:01)
[2021-04-11 13:10] LABS: Troponin I 0.01 ng/mL (<0.03)
[2021-04-11 13:34] LABS: PCO2 Arterial 43 mmHg (35-45); PO2 Arterial 60 mmHg (80-100)
[2021-04-11] MEDS: Iodixanol (CONTRAST) 320 MG/ML 100 ML SDV IV ONE (13:47)
[2021-04-11 13:52] LABS: Hepatitis C Antibody Reactive (Negative)
[2021-04-12] MEDS: DOXYcycline 100 MG in NS 0.9% 250 ml 250 ML IVPB SCH ×2 (04:27→12:41)
[2021-04-12 05:50] LABS: ABS Basophils 0.1 10^3/ul (0-0.2); ABS Eosinophils 0.5 10^3/ul (0-0.6); ABS Lymphocytes 2.5 10^3/ul (1.0-4.8); ABS Monocytes 1.1 10^3/ul (0-0.8); ABS Neutrophils 6.1 10^3/ul (1.5-7.7); Hematocrit 31 % (35-47); Hemoglobin 10.1 g/dL (12.0-16.0); Mean Corpuscular Hemoglobin 31 pg (27-31); Mean Corpuscular Hgb Conc 33 g/dL (31-36); Mean Corpuscular Volume 95 fL (80-97); Mean Platelet Volume 7.2 fL (7.4-10.4); Platelet Count 393 10^3/uL (150-450); Red Blood Count 3.27 10^6 /uL (3.70-4.87); Red Cell Distribution Width 15 % (10-15); White Blood Count 10.2 10^3/uL (3.5-10.8)
[2021-04-12 06:46] LABS: HIV 4th Generation Nonreactive (Nonreactive)
[2021-04-12 06:47] LABS: Albumin 3.4 g/dL (3.2-5.2); Calcium 8.9 mg/dL (8.6-10.3); Potassium 4.2 mmol/L (3.5-5.0); Total Bilirubin 0.4 mg/dL (0.2-1.0)
[2021-04-12 06:53] LABS: Albumin/Globulin Ratio 1.1 (1-3); Creatinine, Serum 1.02 mg/dL (0.51-0.95); EGFR African American 68.3 (>60); EGFR Non-African American 56.5 (>60); Globulin 3.1 g/dL (2-4); Total Protein 6.5 g/dL (6.4-8.9)
[2021-04-12] MEDS ORDERED: Perflutren Lipid Microsphere 3 ML VIAL ONE (09:31)
[2021-04-12] MEDS: Furosemide 40 mg/4 ml IV VIAL IV SLOW PU SCH (10:06)
[2021-04-13 06:08] LABS: ABS Eosinophils 0.5 10^3/ul (0-0.6); ABS Lymphocytes 2.5 10^3/ul (1.0-4.8); ABS Monocytes 0.8 10^3/ul (0-0.8); ABS Neutrophils 3.9 10^3/ul (1.5-7.7); Eosinophil % 6.1 %; Hematocrit 31 % (35-47); Hemoglobin 10.1 g/dL (12.0-16.0); Lymphocyte % 32.7 %; Mean Corpuscular Hemoglobin 31 pg (27-31); Mean Corpuscular Hgb Conc 33 g/dL (31-36); Mean Corpuscular Volume 94 fL (80-97); Platelet Count 414 10^3/uL (150-450); Red Blood Count 3.26 10^6 /uL (3.70-4.87); Red Cell Distribution Width 14 % (10-15); White Blood Count 7.8 10^3/uL (3.5-10.8)
[2021-04-13 06:41] LABS: Albumin 3.3 g/dL (3.2-5.2); Albumin/Globulin Ratio 1.1 (1-3); Calcium 8.9 mg/dL (8.6-10.3); Creatinine, Serum 0.82 mg/dL (0.51-0.95); EGFR African American 87.9 (>60); EGFR Non-African American 72.6 (>60); Globulin 3.1 g/dL (2-4); Potassium 3.6 mmol/L (3.5-5.0); Total Bilirubin 0.4 mg/dL (0.2-1.0); Total Protein 6.4 g/dL (6.4-8.9)
[2021-04-13 08:28] VITALS: BP 135/71
[2021-04-13 13:27] LABS: Anaplasma phagocytophilum Negative (Negative); B. miyamotoi PCR, B Negative (Negative); Babesia divergens/MO-1 Negative (Negative); Babesia ducani Negative (Negative); Ehrlichia chaffeensis Negative (Negative); Ehrlichia ewingii/canis Negative (Negative); Ehrlichia muris eauclairensis Negative (Negative)
== END 2021-04-13 12:00 | disposition left against medical advice (07) ==
LOC: ED 09:08 → MED 13:18 → MEDTELE 04-11 12:29
PROVIDERS: ADMIT Hospitalist; ATTEND Hospitalist

== ENCOUNTER 2021-06-05 04:18 | Inpatient (IN) ==
[2021-06-05] MEDS ORDERED: Lactated Ringers 1000 ml BAG IV.FLUID IV ONE (04:41)
[2021-06-05 05:25] LABS: ABS Eosinophils 0.4 10^3/ul (0-0.6); ABS Lymphocytes 1.2 10^3/ul (1.0-4.8); ABS Monocytes 0.6 10^3/ul (0-0.8); ABS Neutrophils 11.1 10^3/ul (1.5-7.7); Hematocrit 30 % (35-47); Hemoglobin 9.9 g/dL (12.0-16.0); Lymphocyte % 9.1 %; Mean Corpuscular HGB Conc 33 g/dL (31-36); Mean Corpuscular Hemoglobin 30 pg (27-31); Mean Corpuscular Volume 93 fL (80-97); Mean Platelet Volume 6.7 fL (7.4-10.4); Platelet Count 331 10^3/uL (150-450); Red Blood Count 3.25 10^6 /uL (3.70-4.87); Red Cell Distribution Width 15 % (10-15); White Blood Count 13.3 10^3/uL (3.5-10.8)
[2021-06-05 05:41] LABS: ALT 104 U/L (7-52); AST 126 U/L (13-39); Albumin 3.6 g/dL (3.2-5.2); Albumin/Globulin Ratio 1.2 (1-3); Alkaline Phosphatase 143 U/L (35-149); Anion Gap 5 mmol/L (2-11); Blood Urea Nitrogen 20 mg/dL (6-24); C Reactive Protein 153.19 mg/L (<8.01); CO2 Carbon Dioxide 27 mmol/L (22-32); Calcium 8.2 mg/dL (8.6-10.3); Chloride 104 mmol/L (101-111); EGFR African American 68.3 (>60); EGFR Non-African American 56.5 (>60); Glucose 108 mg/dL (70-100); Potassium 4.3 mmol/L (3.5-5.0); Sodium 136 mmol/L (135-145); Total Protein 6.6 g/dL (6.4-8.9)
[2021-06-05 05:44] LABS: Troponin I 0.05 ng/mL (<0.03)
[2021-06-05 05:48] LABS: Activated Partial Thrombo Time 26.5 seconds (26.0-38.0); INR 1.08 (0.86-1.15)
[2021-06-05] MEDS ORDERED: TOBRAMYCIN IVPB ONE (06:47)
[2021-06-05] MEDS ORDERED: Piperacillin/Tazobac ADVAN 3.375 GM in NS 0.9% 100 ml BAG 100 ML IVPB ONE (06:47)
[2021-06-05] MEDS ORDERED: Azithromycin 500 mg/250 ml NS 500 MG/250 ML BAG IVPB ONE (06:47)
[2021-06-05] MEDS ORDERED: NS 0.9% IVPB ONE (06:47)
[2021-06-05] MEDS ORDERED: Piperacillin/Tazobac 3.375 GM BAG ONE (07:04)
[2021-06-05] MEDS ORDERED: Ondansetron 4 mg VIAL 2 MG/ML 2 ml VIAL IV PRN (07:57)
[2021-06-05 08:42] LABS: Urine Appearance Clear; Urine Bilirubin Negative (Negative); Urine Blood Negative (Negative); Urine Color Yellow; Urine Glucose Negative (Negative); Urine Ketones Negative (Negative); Urine Nitrite Negative (Negative); Urine Protein Negative (Negative); Urine Specific Gravity 1.013 (1.002-1.030); Urine Urobilinogen Negative (Negative)
[2021-06-05] MEDS ORDERED: Zosyn per Pharmacy NOTE FOLLOW UP SCH (09:00)
[2021-06-05] MEDS: Enoxaparin 40 MG/0.4 ML SYR SUBCUT SCH (12:11)
[2021-06-05] MEDS: Morphine ER 30 mg TAB ** extended release PO SCH ×3 (12:11→20:26)
[2021-06-05] MEDS: ZOSYN 3.375 GM Q8H per EXTENDED INFUSION IV SCH ×2 (13:45→20:26)
[2021-06-05] MEDS: HYDROcodone/ACETAMIN 5/325 mg TAB PO PRN (16:12)
[2021-06-05] MEDS: methylPREDNISolone SOD 40 mg/ml 1 ml VIAL IV SCH (16:13)
[2021-06-05] MEDS: Albuterol/Ipratropium NEB.SOL (2.5/0.5 MG) 3 ML NEB.SOLN INH SCH (19:17)
[2021-06-06] MEDS: methylPREDNISolone SOD 40 mg/ml 1 ml VIAL IV SCH ×3 (00:17→16:07)
[2021-06-06] MEDS: Albuterol/Ipratropium NEB.SOL (2.5/0.5 MG) 3 ML NEB.SOLN INH SCH ×4 (01:15→19:51)
[2021-06-06] MEDS: ZOSYN 3.375 GM Q8H per EXTENDED INFUSION IV SCH ×3 (05:04→20:35)
[2021-06-06 05:30] LABS: ABS Lymphocytes 0.8 10^3/ul (1.0-4.8); ABS Monocytes 0.1 10^3/ul (0-0.8); ABS Neutrophils 10.5 10^3/ul (1.5-7.7); Hematocrit 31 % (35-47); Hemoglobin 10.1 g/dL (12.0-16.0); Lymphocyte % 6.6 %; Mean Corpuscular HGB Conc 33 g/dL (31-36); Mean Corpuscular Hemoglobin 31 pg (27-31); Mean Corpuscular Volume 93 fL (80-97); Mean Platelet Volume 6.9 fL (7.4-10.4); Platelet Count 347 10^3/uL (150-450); Red Blood Count 3.33 10^6 /uL (3.70-4.87); Red Cell Distribution Width 15 % (10-15); White Blood Count 11.4 10^3/uL (3.5-10.8)
[2021-06-06 05:49] LABS: Albumin 3.8 g/dL (3.2-5.2); Albumin/Globulin Ratio 1.1 (1-3); Calcium 9.2 mg/dL (8.6-10.3); EGFR African American 68.3 (>60); EGFR Non-African American 56.5 (>60); Globulin 3.6 g/dL (2-4); Potassium 4.6 mmol/L (3.5-5.0); Total Bilirubin 0.4 mg/dL (0.2-1.0); Total Protein 7.4 g/dL (6.4-8.9)
[2021-06-06] MEDS: Morphine ER 30 mg TAB ** extended release PO SCH ×3 (08:57→20:31)
[2021-06-06] MEDS: guaiFENesin 100 mg/5 ml LIQ unit dose cup PO PRN ×3 (08:57→20:35)
[2021-06-06] MEDS: Enoxaparin 40 MG/0.4 ML SYR SUBCUT SCH (08:58)
[2021-06-06] MEDS: Azithromycin 500 mg/250 ml NS 500 MG/250 ML BAG IVPB SCH (08:58)
[2021-06-06] MEDS: HYDROcodone/ACETAMIN 5/325 mg TAB PO PRN (16:11)
[2021-06-07] MEDS: methylPREDNISolone SOD 40 mg/ml 1 ml VIAL IV SCH ×3 (01:05→15:52)
[2021-06-07] MEDS: Albuterol/Ipratropium NEB.SOL (2.5/0.5 MG) 3 ML NEB.SOLN INH SCH ×2 (01:42→08:47)
[2021-06-07 05:06] LABS: ABS Lymphocytes 0.8 10^3/ul (1.0-4.8); ABS Monocytes 0.4 10^3/ul (0-0.8); ABS Neutrophils 13.6 10^3/ul (1.5-7.7); Hematocrit 32 % (35-47); Hemoglobin 10.1 g/dL (12.0-16.0); Lymphocyte % 5.4 %; Mean Corpuscular HGB Conc 32 g/dL (31-36); Mean Corpuscular Hemoglobin 30 pg (27-31); Mean Corpuscular Volume 94 fL (80-97); Mean Platelet Volume 7.1 fL (7.4-10.4); Platelet Count 363 10^3/uL (150-450); Red Blood Count 3.39 10^6 /uL (3.70-4.87); Red Cell Distribution Width 16 % (10-15); White Blood Count 14.7 10^3/uL (3.5-10.8)
[2021-06-07] MEDS: ZOSYN 3.375 GM Q8H per EXTENDED INFUSION IV SCH ×3 (05:12→22:23)
[2021-06-07] MEDS: HYDROcodone/ACETAMIN 5/325 mg TAB PO PRN ×3 (05:19→21:19)
[2021-06-07 05:25] LABS: ALT 94 U/L (7-52); AST 45 U/L (13-39); Albumin 3.6 g/dL (3.2-5.2); Albumin/Globulin Ratio 1.1 (1-3); Alkaline Phosphatase 167 U/L (35-149); Anion Gap 6 mmol/L (2-11); Blood Urea Nitrogen 25 mg/dL (6-24); CO2 Carbon Dioxide 27 mmol/L (22-32); Calcium 9.3 mg/dL (8.6-10.3); Chloride 105 mmol/L (101-111); EGFR African American 77.9 (>60); EGFR Non-African American 64.4 (>60); Globulin 3.4 g/dL (2-4); Glucose 141 mg/dL (70-100); Magnesium 2.4 mg/dL (1.9-2.7); Phosphorus 3.4 mg/dL (2.5-5.0); Potassium 4.6 mmol/L (3.5-5.0); Sodium 138 mmol/L (135-145)
[2021-06-07 05:26] LABS: Total Iron Binding Capacity 454 mcg/dL (250-450); Transferrin 324 mg/dL (203-362)
[2021-06-07 05:31] LABS: % Iron Saturation 4 % (15-55); Iron < 20 ug/dL (50-212); Unsaturated Iron Binding < 439 ug/dL
[2021-06-07 05:44] LABS: Ferritin 66.2 ng/mL (11-307)
[2021-06-07 07:58] LABS: C Reactive Protein 139.81 mg/L (<8.01)
[2021-06-07] MEDS: Morphine ER 30 mg TAB ** extended release PO SCH ×3 (08:33→22:22)
[2021-06-07] MEDS ORDERED: Albuterol/Ipratropium NEB.SOL (2.5/0.5 MG) 3 ML NEB.SOLN INH PRN (08:33)
[2021-06-07] MEDS: Enoxaparin 40 MG/0.4 ML SYR SUBCUT SCH (08:34)
[2021-06-07] MEDS: guaiFENesin 100 mg/5 ml LIQ unit dose cup PO PRN (08:34)
[2021-06-07] MEDS: Azithromycin 500 mg/250 ml NS 500 MG/250 ML BAG IVPB SCH (10:32)
[2021-06-08] MEDS: methylPREDNISolone SOD 40 mg/ml 1 ml VIAL IV SCH ×3 (01:14→15:33)
[2021-06-08 06:03] LABS: Hematocrit 31 % (35-47); Hemoglobin 10.1 g/dL (12.0-16.0); Mean Corpuscular HGB Conc 33 g/dL (31-36); Mean Corpuscular Hemoglobin 31 pg (27-31); Mean Corpuscular Volume 93 fL (80-97); Mean Platelet Volume 6.9 fL (7.4-10.4); Platelet Count 350 10^3/uL (150-450); Red Blood Count 3.29 10^6 /uL (3.70-4.87); Red Cell Distribution Width 15 % (10-15); White Blood Count 13.3 10^3/uL (3.5-10.8)
[2021-06-08 06:22] LABS: Albumin 3.5 g/dL (3.2-5.2); Albumin/Globulin Ratio 1.2 (1-3); EGFR African American 74.2 (>60); EGFR Non-African American 61.3 (>60); Magnesium 2.2 mg/dL (1.9-2.7); Phosphorus 3.3 mg/dL (2.5-5.0); Potassium 4.3 mmol/L (3.5-5.0); Total Bilirubin 0.3 mg/dL (0.2-1.0); Total Protein 6.5 g/dL (6.4-8.9)
[2021-06-08] MEDS: ZOSYN 3.375 GM Q8H per EXTENDED INFUSION IV SCH ×3 (06:36→21:13)
[2021-06-08] MEDS: Enoxaparin 40 MG/0.4 ML SYR SUBCUT SCH (10:18)
[2021-06-08] MEDS: Morphine ER 30 mg TAB ** extended release PO SCH ×3 (10:49→21:13)
[2021-06-08] MEDS: Iron Sucrose 200 MG in NS 0.9% 100 ml BAG 100 ML IVPB SCH (11:45)
[2021-06-08] MEDS: Azithromycin 500 mg/250 ml NS 500 MG/250 ML BAG IVPB SCH (12:17)
[2021-06-08] MEDS: HYDROcodone/ACETAMIN 5/325 mg TAB PO PRN (13:41)
[2021-06-08 19:21] LABS: Alpha 1 Antitrypsin A1A 208 mg/dL (100 - 190)
[2021-06-09] MEDS: methylPREDNISolone SOD 40 mg/ml 1 ml VIAL IV SCH ×3 (00:37→15:58)
[2021-06-09] MEDS: ZOSYN 3.375 GM Q8H per EXTENDED INFUSION IV SCH ×3 (04:50→21:20)
[2021-06-09] MEDS ORDERED: Al Hydrox/Mg Hydrox/Simet LIQ 30 ML UDC PO PRN (06:06)
[2021-06-09] MEDS ORDERED: Al Hydrox/Mg Hydrox/Simet LIQ 30 ML UDC ONE (06:11)
[2021-06-09] MEDS ORDERED: Pantoprazole VIAL 40 MG VIAL IV ONE (06:30)
[2021-06-09 06:59] LABS: Hematocrit 34 % (35-47); Hemoglobin 11.2 g/dL (12.0-16.0); Mean Corpuscular HGB Conc 33 g/dL (31-36); Mean Corpuscular Hemoglobin 31 pg (27-31); Mean Corpuscular Volume 92 fL (80-97); Platelet Count 417 10^3/uL (150-450); Red Blood Count 3.68 10^6 /uL (3.70-4.87); Red Cell Distribution Width 15 % (10-15); White Blood Count 7.8 10^3/uL (3.5-10.8)
[2021-06-09 07:16] LABS: Calcium 9.1 mg/dL (8.6-10.3); EGFR African American 74.2 (>60); EGFR Non-African American 61.3 (>60); Magnesium 2.3 mg/dL (1.9-2.7); Phosphorus 3.2 mg/dL (2.5-5.0); Potassium 4.3 mmol/L (3.5-5.0)
[2021-06-09] MEDS: Enoxaparin 40 MG/0.4 ML SYR SUBCUT SCH (08:50)
[2021-06-09] MEDS: Morphine ER 30 mg TAB ** extended release PO SCH ×3 (08:51→21:13)
[2021-06-09] MEDS: Iron Sucrose 200 MG in NS 0.9% 100 ml BAG 100 ML IVPB SCH (10:39)
[2021-06-09] MEDS: Azithromycin 500 mg/250 ml NS 500 MG/250 ML BAG IVPB SCH (10:49)
[2021-06-09] MEDS: HYDROcodone/ACETAMIN 5/325 mg TAB PO PRN ×3 (11:43→22:48)
[2021-06-10] MEDS: ZOSYN 3.375 GM Q8H per EXTENDED INFUSION IV SCH ×3 (05:20→21:20)
[2021-06-10 05:52] LABS: Hematocrit 28 % (35-47); Hemoglobin 8.9 g/dL (12.0-16.0); Mean Corpuscular HGB Conc 32 g/dL (31-36); Mean Corpuscular Hemoglobin 30 pg (27-31); Mean Corpuscular Volume 93 fL (80-97); Platelet Count 461 10^3/uL (150-450); Red Blood Count 3.01 10^6 /uL (3.70-4.87); Red Cell Distribution Width 15 % (10-15)
[2021-06-10 06:07] LABS: Calcium 8.3 mg/dL (8.6-10.3); EGFR African American 55.1 (>60); EGFR Non-African American 45.5 (>60); Magnesium 2.3 mg/dL (1.9-2.7); Phosphorus 4.2 mg/dL (2.5-5.0)
[2021-06-10] MEDS ORDERED: NS 0.9% 500 ml BAG 500 ML IV ONE (07:06)
[2021-06-10] MEDS ORDERED: Lactated Ringers 1000 ml BAG 1,000 ML IV ONE ×2 (08:49→10:06)
[2021-06-10] MEDS ORDERED: methylPREDNISolone SOD 40 mg/ml 1 ml VIAL IV ONE (09:40)
[2021-06-10] MEDS: Azithromycin 500 mg/250 ml NS 500 MG/250 ML BAG IVPB SCH (10:09)
[2021-06-10 10:15] LABS: Hematocrit 25 % (35-47); Mean Corpuscular HGB Conc 33 g/dL (31-36); Mean Corpuscular Hemoglobin 30 pg (27-31); Mean Corpuscular Volume 92 fL (80-97); Mean Platelet Volume 6.9 fL (7.4-10.4); Platelet Count 425 10^3/uL (150-450); Red Blood Count 2.68 10^6 /uL (3.70-4.87); Red Cell Distribution Width 15 % (10-15); White Blood Count 18.1 10^3/uL (3.5-10.8)
[2021-06-10] MEDS: Morphine ER 30 mg TAB ** extended release PO SCH ×4 (10:45→21:25)
[2021-06-10] MEDS: Iron Sucrose 200 MG in NS 0.9% 100 ml BAG 100 ML IVPB SCH (10:45)
[2021-06-10] MEDS: Enoxaparin 40 MG/0.4 ML SYR SUBCUT SCH (10:46)
[2021-06-10] MEDS ORDERED: Iodixanol (CONTRAST) 320 MG/ML 100 ML SDV IV ONE (11:13)
[2021-06-10 11:43] LABS: Hematocrit 25 % (35-47); Hemoglobin 8.2 g/dL (12.0-16.0); Mean Corpuscular HGB Conc 33 g/dL (31-36); Mean Corpuscular Hemoglobin 30 pg (27-31); Mean Corpuscular Volume 92 fL (80-97); Mean Platelet Volume 6.8 fL (7.4-10.4); Platelet Count 415 10^3/uL (150-450); Red Blood Count 2.71 10^6 /uL (3.70-4.87); Red Cell Distribution Width 15 % (10-15); White Blood Count 17.6 10^3/uL (3.5-10.8)
[2021-06-10 11:52] LABS: Activated Partial Thrombo Time 21.7 seconds (26.0-38.0); INR 1.04 (0.86-1.15)
[2021-06-10] MEDS: Morphine 2 MG/ML SYRINGE IV PRN ×2 (12:25→17:33)
[2021-06-10 12:38] LABS: ABS Lymphocytes 2.3 10^3/ul (1.0-4.8); ABS Monocytes 1.2 10^3/ul (0-0.8); ABS Neutrophils 14.2 10^3/ul (1.5-7.7); Eosinophil % 0.1 %; Lymphocyte % 12.8 %; Nucleated Red Blood Cells % 0.1
[2021-06-10] MEDS: HYDROcodone/ACETAMIN 5/325 mg TAB PO PRN ×2 (13:39→18:37)
[2021-06-10] MEDS ORDERED: Morphine 2 MG/ML SYRINGE ONE (15:55)
[2021-06-10 18:14] LABS: Hematocrit 30 % (35-47); Hemoglobin 9.9 g/dL (12.0-16.0)
[2021-06-10 23:25] LABS: Hematocrit 30 % (35-47); Hemoglobin 9.8 g/dL (12.0-16.0)
[2021-06-11] MEDS: ZOSYN 3.375 GM Q8H per EXTENDED INFUSION IV SCH ×3 (05:34→21:05)
[2021-06-11 06:07] LABS: ABS Lymphocytes 3.4 10^3/ul (1.0-4.8); ABS Monocytes 0.7 10^3/ul (0-0.8); ABS Nucleated RBC 0.1 10^3/ul; Eosinophil % 0.2 %; Hematocrit 30 % (35-47); Hemoglobin 9.8 g/dL (12.0-16.0); Mean Corpuscular HGB Conc 33 g/dL (31-36); Mean Corpuscular Hemoglobin 31 pg (27-31); Mean Corpuscular Volume 93 fL (80-97); Mean Platelet Volume 6.8 fL (7.4-10.4); Nucleated Red Blood Cells % 0.4; Platelet Count 317 10^3/uL (150-450); Red Blood Count 3.21 10^6 /uL (3.70-4.87); Red Cell Distribution Width 15 % (10-15); White Blood Count 14.2 10^3/uL (3.5-10.8)
[2021-06-11 06:19] LABS: Albumin 3.1 g/dL (3.2-5.2); Albumin/Globulin Ratio 1.2 (1-3); Calcium 7.9 mg/dL (8.6-10.3); EGFR African American 54.5 (>60); EGFR Non-African American 45.1 (>60); Globulin 2.5 g/dL (2-4); Phosphorus 4.5 mg/dL (2.5-5.0); Potassium 4.1 mmol/L (3.5-5.0); Total Bilirubin 0.5 mg/dL (0.2-1.0); Total Protein 5.6 g/dL (6.4-8.9)
[2021-06-11 07:27] LABS: Magnesium 2.2 mg/dL (1.9-2.7)
[2021-06-11] MEDS: Morphine ER 30 mg TAB ** extended release PO SCH ×3 (08:18→21:05)
[2021-06-11] MEDS: Azithromycin 500 mg/250 ml NS 500 MG/250 ML BAG IVPB SCH (08:19)
[2021-06-11] MEDS: HYDROcodone/ACETAMIN 5/325 mg TAB PO PRN ×2 (08:19→18:16)
[2021-06-11] MEDS: Morphine 2 MG/ML SYRINGE IV PRN ×2 (09:00→21:06)
[2021-06-11 15:56] LABS: Hematocrit 28 % (35-47); Hemoglobin 9.4 g/dL (12.0-16.0); Mean Corpuscular HGB Conc 33 g/dL (31-36); Mean Corpuscular Hemoglobin 31 pg (27-31); Mean Corpuscular Volume 92 fL (80-97); Mean Platelet Volume 6.8 fL (7.4-10.4); Platelet Count 353 10^3/uL (150-450); Red Blood Count 3.06 10^6 /uL (3.70-4.87); Red Cell Distribution Width 15 % (10-15); White Blood Count 15.2 10^3/uL (3.5-10.8)
[2021-06-12] MEDS: ZOSYN 3.375 GM Q8H per EXTENDED INFUSION IV SCH ×3 (06:06→20:32)
[2021-06-12 07:08] LABS: ABS Eosinophils 0.4 10^3/ul (0-0.6); ABS Monocytes 0.7 10^3/ul (0-0.8); ABS Neutrophils 6.8 10^3/ul (1.5-7.7); Eosinophil % 3.5 %; Hematocrit 24 % (35-47); Hemoglobin 8.3 g/dL (12.0-16.0); Lymphocyte % 33.7 %; Mean Corpuscular HGB Conc 34 g/dL (31-36); Mean Corpuscular Hemoglobin 32 pg (27-31); Mean Corpuscular Volume 92 fL (80-97); Mean Platelet Volume 6.9 fL (7.4-10.4); Nucleated Red Blood Cells % 0.1; Platelet Count 332 10^3/uL (150-450); Red Blood Count 2.64 10^6 /uL (3.70-4.87); Red Cell Distribution Width 15 % (10-15); White Blood Count 11.9 10^3/uL (3.5-10.8)
[2021-06-12 07:24] LABS: Albumin 3.1 g/dL (3.2-5.2); Albumin/Globulin Ratio 1.2 (1-3); Direct Bilirubin 0.1 mg/dL (0.03-0.18); EGFR Non-African American 52.9 (>60); Globulin 2.5 g/dL (2-4); Indirect Bilirubin 0.3 mg/dL (0.3-1.0); Magnesium 2.3 mg/dL (1.9-2.7); Potassium 3.8 mmol/L (3.5-5.0); Total Bilirubin 0.4 mg/dL (0.2-1.0); Total Protein 5.6 g/dL (6.4-8.9)
[2021-06-12] MEDS: Morphine ER 30 mg TAB ** extended release PO SCH ×3 (07:54→20:33)
[2021-06-12] MEDS: Azithromycin 500 mg/250 ml NS 500 MG/250 ML BAG IVPB SCH (07:55)
[2021-06-12 10:00] LABS: Hematocrit 27 % (35-47); Hemoglobin 8.8 g/dL (12.0-16.0)
[2021-06-12] MEDS ORDERED: HYDROcodone/ACETAMIN 5/325 mg TAB PO PRN (15:52)
[2021-06-12] MEDS: Morphine 2 MG/ML SYRINGE IV PRN (20:35)
[2021-06-13] MEDS: Morphine 2 MG/ML SYRINGE IV PRN ×2 (00:50→09:13)
[2021-06-13] MEDS: ZOSYN 3.375 GM Q8H per EXTENDED INFUSION IV SCH (06:07)
[2021-06-13 07:09] LABS: Hematocrit 24 % (35-47); Hemoglobin 7.8 g/dL (12.0-16.0); Mean Corpuscular HGB Conc 33 g/dL (31-36); Mean Corpuscular Hemoglobin 31 pg (27-31); Mean Corpuscular Volume 94 fL (80-97); Mean Platelet Volume 7.1 fL (7.4-10.4); Platelet Count 332 10^3/uL (150-450); Red Blood Count 2.54 10^6 /uL (3.70-4.87); Red Cell Distribution Width 15 % (10-15); White Blood Count 12.3 10^3/uL (3.5-10.8)
[2021-06-13 07:20] LABS: Calcium 7.9 mg/dL (8.6-10.3); EGFR African American 74.2 (>60); EGFR Non-African American 61.3 (>60); Magnesium 2.1 mg/dL (1.9-2.7)
[2021-06-13] MEDS: Morphine ER 30 mg TAB ** extended release PO SCH (09:12)
[2021-06-13 09:44] LABS: Hematocrit 26 % (35-47); Hemoglobin 8.4 g/dL (12.0-16.0)
[2021-06-13 13:26] VITALS: BP 127/67
== END 2021-06-13 13:15 | disposition left against medical advice (07) | DRG 720 ==
LOC: ED 04:18 → SUATTDRO 07:57 → MEDTELE 07:57 → ICU 06-10 10:20 → MED 06-11 18:10
PROVIDERS: ADMIT Hospitalist; ATTEND Internal Medicine

== ENCOUNTER 2023-04-24 11:51 | Observation (INO) ==
[2023-04-24 12:36] VITALS: BP 94/62
[2023-04-24] MEDS ORDERED: Al Hydrox/Mg Hydrox/Simet LIQ 30 ML UDC PO PRN (14:18)
[2023-04-24] MEDS ORDERED: Senna TAB 8.6 mg TAB PO PRN (14:18)
[2023-04-24] MEDS ORDERED: Ondansetron 4 mg VIAL 2 MG/ML 2 ml VIAL IV PRN (14:18)
[2023-04-24 14:46] LABS: ABS Basophils 0.1 10^3/uL (0.0-0.1); ABS Eosinophils 0.3 10^3/uL (0.0-0.5); ABS Lymphocytes 2.2 10^3/uL (1.0-4.8); ABS Monocytes 0.6 10^3/uL (0.0-0.9); ABS Neutrophils 3.8 10^3/uL (1.5-7.6); ABS Nucleated RBC 0.01 10^3/ul; Eosinophil % 4.7 %; Hematocrit 28.4 % (35-45); Hemoglobin 9.4 g/dL (11.5-14.3); Lymphocyte % 31.6 %; Mean Corpuscular Hemoglobin 29.2 pg (27-33); Mean Corpuscular Volume 88.3 fL (80-97); Mean Platelet Volume 6.7 fL (7.5-11.2); Nucleated Red Blood Cells % 0.1 /100 WBC (0.0-0.4); Platelet Count 616 10^3/uL (150-450); Red Blood Count 3.22 10^6/uL (3.63-4.92); White Blood Count 7.1 10^3/uL (3.8-11.8)
[2023-04-24 15:00] LABS: Activated Partial Thrombo Time 36.7 seconds (26.0-38.0); INR 1.36 (0.88-1.18)
[2023-04-24 15:05] LABS: High Sens Troponin Baseline < 3 pg/mL (<15)
[2023-04-24 15:30] LABS: ALT 16 U/L (7-52); Albumin 3.8 g/dL (3.2-5.2); Albumin/Globulin Ratio 1.1 (1-3); Alkaline Phosphatase 127 U/L (35-149); Blood Urea Nitrogen 14 mg/dL (6-24); C Reactive Protein 106.12 mg/L (<8.01); CO2 Carbon Dioxide 28 mmol/L (22-32); Calcium 8.9 mg/dL (8.6-10.3); Chloride 99 mmol/L (101-111); Creatine Kinase 41 U/L (10-223); Creatinine, Serum 1.07 mg/dL (0.51-0.95); Globulin 3.4 g/dL (2-4); Glucose 75 mg/dL (70-100); Sodium 138 mmol/L (135-145); Total Protein 7.2 g/dL (6.4-8.9)
[2023-04-24 15:35] LABS: Anion Gap 11 mmol/L (2-16)
[2023-04-24 16:39] LABS: Urine Appearance Clear; Urine Bilirubin Negative (Negative); Urine Blood Negative (Negative); Urine Color Yellow; Urine Glucose Negative (Negative); Urine Ketones Negative (Negative); Urine Nitrite Negative (Negative); Urine Protein Negative (Negative); Urine Specific Gravity 1.008 (1.002-1.030); Urine Urobilinogen Negative (Negative)
[2023-04-24] MEDS ORDERED: Enoxaparin 40 MG/0.4 ML SYR SUBCUT SCH (17:00)
[2023-04-24 17:20] LABS: Erythrocyte Sed Rate 53 mm/Hr (0-29)
[2023-04-24] MEDS ORDERED: Morphine ER 30 mg TAB ** extended release PO PRN (17:55)
[2023-04-24] MEDS ORDERED: HYDROcodone/ACETAMIN 5/325 mg TAB PO PRN (17:55)
[2023-04-24] MEDS ORDERED: Albuterol HFA INHALER 8 gm MDI INH PRN (17:55)
== END 2023-04-24 18:55 | disposition left against medical advice (07) ==
LOC: ED 11:51 → EDHOLD 11:51
PROVIDERS: ADMIT Student in an Organized Health Care Education/Training Program; ATTEND Hospitalist